=== PATIENT | female | born 1990 | race Hispanic/Latino ===

== ENCOUNTER 2018-07-02 10:00 | Observation (INO) | payer MEDICAID, SELFPAY ==
[2018-07-02] MEDS ORDERED: Ondansetron HCl/PF 4 MG/2 ML Vial IVP PRN (11:12)
[2018-07-02] MEDS ORDERED: Sodium Chloride 0.9% 10 ML ONE ×2 (11:14→21:23)
[2018-07-02] MEDS ORDERED: Lactated Ringer's 1,000 ML IV SCH (11:30)
--- NOTE | 2018-07-02 11:33 | PDOC.FPROB ---
Addendum entered and electronically signed by Dalia Alvarado MD 07/02/18 12: 35: 27 yo @ 7.1 by LMP (BRAYDON 02/17/2019)who presents with intractable nausea/ vomiting x 2-3 weeks, also reports hematemsis. Pt has history of molar . 1) Mild dehydration - will replete volume loss with IV fluid 2) Hyperemesis gravidarum - will treat with Zofran prn and diclegis. Will check electrolytes and replace as needed; with reports of hematemesis, will consult GI , check H/H and gastric occult blood test. 3) - will obtain IOB labs as well as TVUS to verify intrauterine and rule out molar as a cause of hyperemesis. - Original Note: FMR OB H&P: HPI - History of Present Illness Chief Complaint: Nausea and vomiting History of Present Illness: 27 yo @ 7.1 wk by LMP presents for untractable nausea and vomiting for the past 2-3 weeks. She reports she has an appetite, but has not been able to keep foods or liquids down. She has been vomiting, sometimes bright red blood up to 1 cup of blood, denies clots. She has lost 6 lbs within the last two weeks. She had been taking suppositories (presumably phenergan) for her nausea but they stopped working. She denies vaginal bleeding or discharge or loss of fluid. Endorses vision changes, light headedness, diffuse weakness, throat pain , and midepigastric abdominal pain. She has a PMH of hyperemesis gravidarum with a previous . She also has a history of a molar . 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: No STIs, normal pap smears - Surgical History Sx History: none - Social History Social History: no smoking, alcohol, or drug use - Family History Family History: Family history of uterine or cervical cancer in the women of her family, states she's not sure which but they had hysterectomies Also stated women had "uterine cysts," possibly fibroids in her family history FMR OB H&P: Medications - Current Home Medications: Medication Instructions Recorded Confirmed Type Calcium Carbonate [Tums Extra 2 tablet PO Q2HR PRN 08/30/15 08/30/15 History Strength] Promethazine [Phenergan] 25 mg PO Q6HR PRN 08/30/15 08/30/15 History Acetaminophen With Codeine 1 - 2 tablet PO Q6HR PRN #0 tablet 08/31/15 Rx [Tylenol with Codeine #3] Docusate Calcium [Surfak] 100 mg PO BID #0 cap 08/31/15 Rx Ferrous Sulfate [Feosol] 325 mg PO BID-WM #0 tab 08/31/15 Rx Ibuprofen [Motrin] 800 mg PO Q6H PRN #0 tab 08/31/15 Rx Allergies/Adverse Reactions: Allergies Allergy/AdvReac Type Severity Reaction Status Date / Time No Known Drug Allergies Allergy Verified 08/30/15 08:29 FMR OB H&P: ROS - Review of Systems General: reports: weight/appetite/sleep changes, fatigue. denies: fever/chills Eyes: reports: vision changes ENT: reports: sore throat, pain with swallowing, trouble with swallowing Cardiovascular: reports: chest pain (chest pain with vomiting), palpitation Respiratory: reports: shortness of breath. denies: cough Gastrointestinal: reports: abdominal pain (midepigastric), nausea, vomiting. denies: diarrhea, constipation, bright red blood, dark black tarry stools Genitourinary (Female): denies: incontinence, dysuria, hematuria, vaginal discharge, vaginal pain, vaginal bleeding Musculoskeletal: denies: pain Neurologic: reports: weakness. denies: numbness Integumentary: denies: itching, rash FMR OB H&P: Vital Signs - Maternal Vital signs: Vital Signs - First Documented Temp Pulse Resp BP 98.2 F 74 18 114/82 07/02/18 10:32 07/02/18 10:32 07/02/18 10:32 07/02/18 10:32 FMR OB H&P: Physical Exam - Physical Exam General: NAD, awake, alert and oriented HEENT: normocephalic and atraumatic, PERRLA, EOMI, other (Mucous membranes dry) Neck: supple, no LAD Heart: RRR, normal S1/S2, no murmurs/rubs/gallops, pulses present, no edema General: CTAB, no respiratory distress, good air movement, no wheezing, no retractions Abdomen: soft, bowel sound present, other (midepigastric TTP, no rebound tenderness) Musculoskeletal: pulses present Skin: no rash, capillary refill <2 seconds Psychiatric: intact recent and remote memory, good judgement and insight, normal mood and affect FMR OB H&P: A/P - Problem List (1) Normal in multigravida in first trimester Current Visit: Yes Status: Acute Code(s): Z34.81 - ENCOUNTER FOR SUPRVSN OF NORMAL , FIRST TRIMESTER (2) Hyperemesis affecting , antepartum Current Visit: No Status: Acute Code(s): O21.0 - MILD HYPEREMESIS GRAVIDARUM Discussion: Date/Time: 07/02/18 1128 27 @ 7.1 wk by LMP presenting for hyperemesis gravidarum. Hyperemesis Gravidarum with dehydration -VSS, pt appears mildly dehydrated on exam -LR bolus of 1000 ml, reassess then consider adding MIVF -IV zofran for nausea -Strict I/Os -Diclegus this PM -CBC, CMP, mag phos, BHCG, lipase to check for other causes (including molar , pancreatitis, choledocholithiasis), check her electrolyte status, and concern for anemia with her bloody vomitus Multigravid , first trimester -Initial labs -1st trimester vaginal Dating US Sickle cell trait - per pt report, aware This H&P was discussed with Dr. Vidal who agree with the above documentation and plan. Attending Addendum - Attending Addendum Date/Time: 07/02/18 6218 I personally evaluated the patient and discussed the management with team. I agree with and repeated the History, Examination, Assessment and Plan documented above with any addition or exceptions noted below. NAD, resting comfortably, nonfocal exam. Hyperemesis gravidarum with dehydration -fluids, zofran, dox/b12, closely monitor Hematemesis -as she is adamant that she had ~12 oz of blood will discuss with GI. Anticipate simply MW tears with no evidence of perforation. Will add PPI elevated HCG -1T sono
[2018-07-02 11:47] LABS: #Eosinphils 0.1 thou/uL (0.0-0.7); #Lymphocytes 1.9 thou/uL (1.20-3.40); #Monocytes 0.5 thou/uL (0.11-0.59); #Neutrophils 7.8 thou/uL (1.40-6.50); %Basophils 0.4 % (0.0-1.0); %Eosinophils 0.5 % (0.0-10.0); %Lymphocytes 18.4 % (21.0-51.0); %Monocytes 4.8 % (0.0-10.0); %Neutrophils 75.8 % (42.0-75.0); Hemoglobin 13.9 g/dL (12.0-16.0); Mean Corpuscular HGB CONC 34.1 g/dL (32.0-36.0); Mean Corpuscular Hemoglobin 27.8 pg (27.0-31.0); Mean Corpuscular Volume 81.6 fL (78.0-98.0); Mean Platelet Volume 8.8 fL (7.4-10.4); Platelet Count 219 thou/uL (130-400); RBC Distribution Width 13.2 % (11.5-14.5); Red Blood Cell (RBC) Count 5.01 mill/uL (4.20-5.40); White Blood Cell (WBC) Count 10.3 thou/uL (4.8-10.8)
[2018-07-02 11:55] LABS: ALT (SGPT) 23 U/L (8-55); AST (SGOT) 13 U/L (5-34); Albumin 4.6 g/dL (3.5-5.0); Alkaline Phosphatase 68 U/L (40-150); Anion Gap 13 mmol/L (10-20); BUN (Urea Nitrogen) 7 mg/dL (7.0-18.7); Bilirubin, Total 0.6 mg/dL (0.2-1.2); Calc. Creatinine Clearance 108 mL/min (70-130); Calcium 9.7 mg/dL (7.8-10.44); Carbon Dioxide 24 mmol/L (22-29); Chloride 103 mmol/L (98-107); Estimated GFR-MDRD Greater than 90; Globulin 3.1 g/dL (2.4-3.5); Glucose 89 mg/dL (70-105); Potassium 3.6 mmol/L (3.5-5.1); Protein, Total 7.7 g/dL (6.0-8.3); Sodium 136 mmol/L (136-145)
[2018-07-02 12:13] LABS: HBSAg Index 0.25 S/CO (0-0.99); HIV (1/2) Antibody/Antigen Non-Reactive (NonReactive); HIV 1/2 INDEX 0.11 S/CO (<1.00); Hep B Surf Ag Non-Reactive S/CO (NonReactive); Syphilis Antibody Nonreactive (Nonreactive); Syphilis Antibody Index 0.03 S/CO (<1.00 Non-Reactive); Thyroid Stimulating Hormone 1.3337 uIU/mL (0.35-4.94)
[2018-07-02 12:44] LABS: Magnesium 2.2 mg/dL (1.6-2.6); Phosphorus 2.8 mg/dL (2.3-4.7)
--- NOTE | 2018-07-02 14:11 | CON ---
DATE OF CONSULTATION: 07/02/2018 HISTORY OF PRESENT ILLNESS: The patient is a 27-year-old female, who was in her normal stat e of health, until 7 weeks ago, when she became and started to have problems with persistent nausea and vomiting. She reports last , she had a similar vomiting that lasted for many we eks. She also had some blood in her emesis. After , she did not have any problems and was doing fine. She really has no abdominal pain prior to her onset of vomiting. She reports a 6-pound weight loss. PAST MEDICAL HISTORY: 1. Molar . 2. Sickle cell trait. MEDICATIONS: No prescription medications. ALLERGIES: No known allergies. SOCIAL HISTORY: She does not smoke or drink. FAMILY HISTORY: Negative for GI or liver disease. REVIEW OF SYSTEMS: Ten-systems were reviewed and were negative except for above. PHYSICAL EXAMINATION: VITAL SIGNS: Shows a temperature 98.2, pulse 74, respiratory rate 18, blood pressure 114/82. HEENT: Unremarkable. NECK: Supple. CHEST: Clear. CARDIOVASCULAR: Regular rate and rhythm. ABDOMEN: Soft. Diffusely tender without rebound or guarding. Bowel sounds are present and normoact aston. RECTAL: Deferred. EXTREMITIES: Normal. NEUROLOGIC: Nonfocal. LABORATORY DATA: Shows a white blood cell count of 10.3, hemoglobin 13.9, hematocrit of 40.9, MCV of 81.6. Chemistries were all normal. Total beta hCG is 15,000. TSH is normal. Syphilis, hepatitis B surface antigen and HIV are all nonreactive. Pelvic ultrasound is pending. ASSESSMENT: 1. Hyperemesis gravidarum. 2. Hematemesis - probably secondary to a small Margo-Singletary tear or possibly secondary to some eros aston esophagitis. RECOMMENDATIONS: 1. Strict control of nausea and vomiting. 2. Add a proton pump inhibitor. 3. Stable for discharge from GI standpoint. 4. No endoscopy at this time.
--- NOTE | 2018-07-02 15:17 | ULT ---
OBSTETRIC SONOGRAM: History: Early . FINDINGS: Multiple transvaginal sonographic views show a single intrauterine gestational sac in the endometrial cavity with a yolk sac and pole. Heart motion at 133 beats/minute. Measurements correlate with 7 weeks 3 days gestational age giving an estimated date of delivery based on today's sonogram of 5-1 8-19. A heterogeneous subchorionic fluid collection measures up to 2.7 cm. Minimal free fluid in the pelvis. Right ovary is 3.4 cm and left is 3.3 cm. Each has a normal appearance with good color and spectral d oppler flow. IMPRESSION: Single viable intrauterine gestation with estimated gestational age based on today's sonogram of 7 we eks 3 days. Moderate sized subchorionic hemorrhage. POS: [facility]
[2018-07-02 17:14] LABS: Bilirubin Negative (Negative); Blood, Urine Negative (Negative); Clarity CLOUDY (Clear); Glucose, Urine (Dipstick) Negative (Negative); Leukocyte Moderate (Negative); Nitrite Negative (Negative); Protein, Urine (Dipstick) Trace mg/dL (Neg-Trace); Specific Gravity, Urine 1.022 (1.002-1.036)
[2018-07-02 17:16] LABS: Bacteria/HPF Rare-Few HPF (None Seen); Hyaline Casts/LPF 4-6 HYALINE CAST LPF (0-3 Hyaline); Pathc Cast-AUWi Flag 1.59 (0-2.49); Squamous Epithelial 0-3 HPF (0-3); WBC/HPF 21-50 HPF (0-3)
[2018-07-02 17:19] LABS: RBC/HPF 0-3 HPF (0-3)
[2018-07-02] MEDS ORDERED: pyridOXINE 50 MG (B6) TAB PO SCH ×2 (21:00)
[2018-07-02] MEDS ORDERED: Doxylamine 25 MG TAB PO SCH (21:00)
[2018-07-02] MEDS: Famotidine/PF 20 mg/2ml Vial SLOW IVP SCH (21:28)
--- NOTE | 2018-07-03 08:34 | PDOC.FM ---
- Subjective Subjective: 27 yo @ 7.2 by LMP c/w 7.1 week [facility] day 2. No acute events overnight. Pt reports one episode of nausea when brushing teeth, but denies recurrent episodes of vomiting. Denies hematemesis. Deneis dysuria, urinary frequency and urgency. Reports good PO intake and pt eating breakfast when seen this AM. - Objective MAR Reviewed: Yes Vital Signs & Weight: Vital Signs (12 hours) Temp Pulse Resp BP Pulse Ox 07/03/18 07:51 99.3 F 64 20 92/51 L 100 07/03/18 05:44 98.4 F 62 16 98/58 L 07/02/18 23:50 98.4 F 57 L 16 93/63 Weight Weight 56.245 kg I&O: 07/02/18 07/03/18 07/04/18 06:59 06:59 06:59 Intake Total 2224 Balance 2224 Result Diagrams: 07/02/18 11:19 07/02/18 11:19 <Migel Yousif - Last Filed: 07/03/18 08:34> - Objective Vital Signs & Weight: Vital Signs (12 hours) Temp Pulse Resp BP Pulse Ox 07/03/18 07:51 99.3 F 64 20 92/51 L 100 07/03/18 05:44 98.4 F 62 16 98/58 L 07/02/18 23:50 98.4 F 57 L 16 93/63 Weight Weight 56.245 kg I&O: 07/02/18 07/03/18 07/04/18 06:59 06:59 06:59 Intake Total 2224 Balance 2224 Result Diagrams: 07/02/18 11:19 07/02/18 11:19 <Adelso Vidal - Last Filed: 07/03/18 09:56> Phys Exam - Physical Examination Constitutional: NAD HEENT: PERRLA, moist MMs Neck: no nodes Respiratory: no wheezing, no rales, no rhonchi, clear to auscultation bilateral Cardiovascular: RRR, no significant murmur, no rub Gastrointestinal: soft, non-tender, no distention, positive bowel sounds Musculoskeletal: no edema, pulses present Neurological: non-focal, moves all 4 limbs Psychiatric: normal affect Skin: no rash, normal turgor, cap refill <2 seconds <Migel Yousif - Last Filed: 07/03/18 08:34> Dx/Plan (1) Hyperemesis affecting , antepartum Code(s): O21.0 - MILD HYPEREMESIS GRAVIDARUM Status: Acute (2) Dehydration during Code(s): O26.899 - OTH RELATED CONDITIONS, UNSPECIFIED TRIMESTER; E86.0 - DEHYDRATION Status: Resolved (3) Asymptomatic bacteriuria during Code(s): O99.89 - OTH DISEASES AND CONDITIONS COMPL PREG/CHLDBRTH; R82.71 - BACTERIURIA Status: Acute (4) Hematemesis Code(s): K92.0 - HEMATEMESIS Status: Resolved Qualifiers: Nausea presence: with nausea Qualified Code(s): K92.0 - Hematemesis - Plan Plan: 1) Hyperemesis gravidarum: - denies recurrent episodes of vomiting. One episode of nausea since yesterday. - tolerating PO - s/p 1L LR - appears euvolemic w/o evidence of volume depletion - belia ok for dc to home today with continued unisom/pyridoxine and zofran prn 2) Dehydration: - s/p 1L LR - tolerating PO, resolved - ok for dc to home 3) Asymptomatic bacteriuria - mod leuks and rare/few bacteriu with 0-3 squams - rx with 1x dose of 3gm fosfomycin - f/u OP with repeat ua and culture - stable for dc to home 4) Hematemesis, resolved -seen by GI and stable for DC - recommend PPI, omeprazole added - belia 2/2 small MW tear vs esophagitis Dispo: Likely stable for DC to home with close OP f/u pending continued tolerance of PO. Will rx asymptomatic bacteriuria w/ fosfomycin X1. <Migel Yousif - Last Filed: 07/03/18 08:34> (1) Normal in multigravida in first trimester Code(s): Z34.81 - ENCOUNTER FOR SUPRVSN OF NORMAL , FIRST TRIMESTER Status: Acute (2) Hyperemesis affecting , antepartum Code(s): O21.0 - MILD HYPEREMESIS GRAVIDARUM Status: Acute <Adelso Vidal - Last Filed: 07/03/18 09:56> Attending Addendum - Attending Addendum Date/Time: 07/03/1856 I personally evaluated the patient and discussed the management with Dr. Yousif. I agree with and repeated the History, Examination, Assessment and Plan documented above with any addition or exceptions noted below. Pt nontoxic this AM and tolerating some juice but with persistent nausea. Repeat zofran. Will continue hydration, PPI, and observe during the day. Hopeful d/c this PM if able to tolerate diet. <Adelso Vidal - Last Filed: 07/03/18 09:56>
[2018-07-03] MEDS ORDERED: Fosfomycin 3 GM/Packet PO SCH (08:45)
[2018-07-03] MEDS ORDERED: Prenatal Vitamin 1 TAB PO SCH (09:00)
[2018-07-03] MEDS: Famotidine/PF 20 mg/2ml Vial SLOW IVP SCH (09:19)
[2018-07-03] MEDS ORDERED: Ondansetron HCl/PF 4 MG/2 ML Vial IVP SCH (09:45)
[2018-07-03 11:42] VITALS: BP 104/61; TEMP 98.1
[2018-07-03 14:36] VITALS: BMI 23.3
== END 2018-07-03 16:12 | disposition home or self-care (01) ==
LOC: 3SE 10:15
PROVIDERS: ADMIT Emergency Medicine; ATTEND Emergency Medicine
DX: O21.1 Hyperemesis gravidarum with metabolic disturbance (principal); O99.011 Anemia complicating pregnancy, first trimester; D57.3 Sickle-cell trait; O99.89 Other specified diseases and conditions complicating pregnancy, childbirth and the puerperium; R82.71 Bacteriuria; O99.611 Diseases of the digestive system complicating pregnancy, first trimester; K92.0 Hematemesis; Z3A.01 Less than 8 weeks gestation of pregnancy; Z79.899 Other long term (current) drug therapy
CPT/HCPCS: 36415; 76856; 80053; 81003; 81015; 82271; 83690; 83735; 84100; 84443; 84702; 85025; 86762; 86780; 86850; 86900; 86901; 87086; 87340; 87389; 96361; 96374; 96375; 96376; A4216; G0378; J2405; S0028

== ENCOUNTER 2018-07-25 08:50 | Observation (INO) | payer MEDICAID, SELFPAY ==
[2018-07-25] MEDS ORDERED: Ondansetron PF 4 MG/2 ML Vial ONE ×3 (09:15→14:08)
[2018-07-25 09:19] LABS: #Basophils 0.1 thou/uL (0.0-0.2); #Eosinphils 0.1 thou/uL (0.0-0.7); #Lymphocytes 2.7 thou/uL (1.20-3.40); #Monocytes 0.6 thou/uL (0.11-0.59); #Neutrophils 8.9 thou/uL (1.40-6.50); %Basophils 0.7 % (0.0-1.0); %Eosinophils 0.9 % (0.0-10.0); %Lymphocytes 21.5 % (21.0-51.0); %Monocytes 4.6 % (0.0-10.0); %Neutrophils 72.4 % (42.0-75.0); Hemoglobin 14.5 g/dL (12.0-16.0); Mean Corpuscular HGB CONC 34.3 g/dL (32.0-36.0); Mean Corpuscular Hemoglobin 27.9 pg (27.0-31.0); Mean Corpuscular Volume 81.5 fL (78.0-98.0); Mean Platelet Volume 8.2 fL (7.4-10.4); Platelet Count 273 thou/uL (130-400); RBC Distribution Width 12.8 % (11.5-14.5); White Blood Cell (WBC) Count 12.3 thou/uL (4.8-10.8)
[2018-07-25 09:39] LABS: ALT (SGPT) 22 U/L (8-55); AST (SGOT) 18 U/L (5-34); Albumin 4.9 g/dL (3.5-5.0); Alkaline Phosphatase 70 U/L (40-150); Anion Gap 15 mmol/L (10-20); BUN (Urea Nitrogen) 7 mg/dL (7.0-18.7); Bilirubin, Total 1.2 mg/dL (0.2-1.2); Calc. Creatinine Clearance 0 mL/min (70-130); Calcium 10.4 mg/dL (7.8-10.44); Carbon Dioxide 24 mmol/L (22-29); Chloride 104 mmol/L (98-107); Estimated GFR-MDRD Greater than 90; Globulin 3.7 g/dL (2.4-3.5); Glucose 110 mg/dL (70-105); Protein, Total 8.6 g/dL (6.0-8.3); Sodium 140 mmol/L (136-145)
[2018-07-25] MEDS ORDERED: Acetaminophen 500 MG TAB ONE (10:26)
--- NOTE | 2018-07-25 11:27 | ULT ---
PELVIC ULTRASOUND: Date: 07/25/18 COMPARISON: 07/02/18. HISTORY: 27-year-old female with vaginal bleeding, nausea, and vomiting. TECHNIQUE: Multiplanar Tejeda scale sonographic imaging of the pelvis is obtained with transabdominal imaging. Ova citlaly are assessed with color flow and spectral analysis. FINDINGS: The uterus measures 11.7 x 7.5 x 8.5 cm. There is a gestational sac containing a pole and yolk sac. heart rate is 171 beats/minute. There is no free fluid seen in the pelvis. Right ovary measures 3.9 x 2.4 x 2.2 cm. Left ovary measures 3.2 x 2.6 x 1.8 cm. Ovaries demonstrate normal blood flow without evidence for mass lesion. There is a subtle, heterogeneously hypoechoic area adjacent to the gestational sac measuring approxim ately 2.6 x 0.8 cm x 3.3 cm. This may represent a small subchorionic hemorrhage. Nathalie-rump length is 3.4 cm, correlating with 10 weeks/2 days gestation. Gestational sac diameter is 5.1 cm, correlating with 10 weeks/6 days gestation. Average age based on ultrasound is 10 weeks/4 day s. Estimated date of delivery is 02/16/19. IMPRESSION: Findings suspicious for a small subchorionic hemorrhage. Single, live intrauterine gestation as detai led above. POS: [facility]
[2018-07-25] MEDS ORDERED: Lidocaine Viscous Sol 2% 15 ml UD Cup ONE (11:35)
[2018-07-25] MEDS ORDERED: Mag-Al 1200 mg/1200 mg/30 ML UDCUP ONE (11:35)
[2018-07-25] MEDS ORDERED: Magnesium 2 GM/50 ML BAG (IN WATER) ONE (11:35)
[2018-07-25] MEDS ORDERED: Acetaminophen 325 MG/10.15 ML UDCUP ONE (11:35)
[2018-07-25 14:02] LABS: Bilirubin Small (Negative); Blood, Urine Negative (Negative); Clarity CLEAR (Clear); Glucose, Urine (Dipstick) Negative (Negative); Leukocyte Small (Negative); Nitrite Negative (Negative); Protein, Urine (Dipstick) Trace mg/dL (Neg-Trace); Specific Gravity, Urine 1.023 (1.002-1.036)
[2018-07-25 14:12] LABS: Bacteria/HPF Rare-Few HPF (None Seen); Hyaline Casts/LPF 4-6 HYALINE CAST LPF (0-3 Hyaline); Pathc Cast-AUWi Flag 1.16 (0-2.49); Squamous Epithelial 0-3 HPF (0-3)
[2018-07-25 14:23] LABS: RBC/HPF None Seen HPF (0-3)
[2018-07-25] MEDS ORDERED: Promethazine HCl 25 MG SUPP PR PRN (16:27)
[2018-07-25] MEDS: Ondansetron ODT 8 MG TAB SL SCH (21:19)
[2018-07-25] MEDS: Doxylamine 25 MG TAB PO SCH (21:20)
[2018-07-25] MEDS: pyridOXINE 50 MG (B6) TAB PO SCH (21:21)
[2018-07-26 07:56] VITALS: BP 98/59; TEMP 98.6
[2018-07-26] MEDS: Doxylamine 25 MG TAB PO SCH (08:54)
[2018-07-26] MEDS: pyridOXINE 50 MG (B6) TAB PO SCH (08:54)
[2018-07-26] MEDS: Ondansetron ODT 8 MG TAB SL SCH (08:57)
--- NOTE | 2018-07-26 10:25 | SS ---
DATE OF ADMISSION: 07/25/2018 DATE OF DISCHARGE: 07/26/2018 ADMITTING DIAGNOSIS: 1. Intrauterine at 10 weeks. 2. Hyperemesis gravidarum. DISCHARGE DIAGNOSES: 1. Intrauterine at 10 weeks. 2. Hyperemesis gravidarum. PRIMARY MANAGER SUPPORT SERVICES: Clinic. CHIEF COMPLAINT: Uncontrolled vomiting. HISTORY OF PRESENT ILLNESS: The patient is a 27-year-old multiparous female who has been having diff iculty this entire maintaining weight and controlling her vomiting. The patient at home delgado s been on Zofran, Phenergan suppositories and Diclegis in an attempt to control her nausea, vomiting. The patient reported at the time of my evaluation that these medications have been unable to keep h er vomiting under control at home. She reported that she took her Phenergan suppository during the d ay once, her Zofran she did not take anymore because she did not think it helped and her doxylamine a nd vitamin B6 she took at night and then took the PPI the afternoon. The patient was in the emergenc y room hydrated with IV fluids, had potassium replaced and magnesium replaced prior to my evaluation. The patient reports that her previous was complicated by similar symptoms the entire preg arleth. The patient at initial evaluation denies fever. Reports a mild headache, denies chest pain, shortness of breath. Reports the nausea and vomiting. Denies diarrhea, reports constipation. Repor ts vaginal spotting. Denies any hip problems, knee problems or muscle weakness. Denies urinary urge ncy or frequency. PAST MEDICAL HISTORY: Sickle cell trait. PAST SURGICAL HISTORY: Negative. SOCIAL HISTORY: Denies drug, alcohol or tobacco use. OBSTETRIC HISTORY: She has had 1 term vaginal delivery. ALLERGIES: No known drug allergies. CURRENT HOME MEDICATIONS: Zofran, pantoprazole, promethazine vaginal suppositories, vitamin B6 and d oxylamine. OB LABS: Unavailable at time of evaluation. REVIEW OF SYSTEMS: Per HPI. PHYSICAL EXAMINATION: VITAL SIGNS: On initial intake, blood pressure is 116/70, pulse of 116, respiratory rate of 19, temp erature 98.0. Vital signs this morning, temperature 98.6, pulse of 78, respiratory rate of 20, satti ng 99% on room air, blood pressure 98/59. GENERAL: At initial evaluation the patient appeared to be a little lethargic, but in no acute distre ss. She was alert and oriented, cooperative and pleasant to interact with and slow to move. HEART: Regular. LUNGS: Clear to auscultation bilaterally. ABDOMEN: Soft. EXTREMITIES: Nontender, nonedematous. Over the course of her stay, the patient has not had any vomiting with her change in regimen. On arr ival, she was given a total of 8 mg of Zofran IV and took her doxylamine vitamin B6. This was repeat ed on a twice daily regimen. ASSESSMENT AND PLAN: This morning the patient reports she is feeling a lot better, has been able to maintain a regular diet and is comfortable being discharged home. She already has her medications at home. We just explained to her the new regimen of 8 mg in the morning and 8 mg at night of Zofran a nd then the vitamin B6 25 mg twice a day and the doxylamine 12.5 mg twice a day. The patient is shyann g to be discharged to home with an appointment already scheduled with Clinic on 07/29/2018 [facility] we have encouraged that she keep.
== END 2018-07-26 09:10 | disposition home or self-care (01) ==
LOC: ERS 08:50 → 3SE 15:14
PROVIDERS: ADMIT Obstetrics & Gynecology; ATTEND Obstetrics & Gynecology
DX: O21.0 Mild hyperemesis gravidarum (principal); Z3A.10 10 weeks gestation of pregnancy; Z79.899 Other long term (current) drug therapy
CPT/HCPCS: 76856; 80053; 81003; 81015; 84702; 85025; 86900; 86901; 93005; 93976; 96361; 96365; 96375; 96376; G0378; J2405; J3475; J7050

== ENCOUNTER 2018-08-06 10:31 | Observation (INO) | payer MEDICAID, OTHER, SELFPAY ==
[2018-08-06] MEDS ORDERED: Ondansetron PF 4 MG/2 ML Vial ONE (11:01)
[2018-08-06 11:22] LABS: #Eosinphils 0.1 thou/uL (0.0-0.7); #Lymphocytes 1.3 thou/uL (1.20-3.40); #Monocytes 0.4 thou/uL (0.11-0.59); %Basophils 0.4 % (0.0-1.0); %Eosinophils 1.1 % (0.0-10.0); %Lymphocytes 13.3 % (21.0-51.0); %Monocytes 4.3 % (0.0-10.0); Hemoglobin 13.3 g/dL (12.0-16.0); Mean Corpuscular HGB CONC 34.1 g/dL (32.0-36.0); Mean Corpuscular Hemoglobin 28.5 pg (27.0-31.0); Mean Corpuscular Volume 83.6 fL (78.0-98.0); Mean Platelet Volume 7.9 fL (7.4-10.4); Platelet Count 236 thou/uL (130-400); RBC Distribution Width 12.4 % (11.5-14.5); Red Blood Cell (RBC) Count 4.67 mill/uL (4.20-5.40); White Blood Cell (WBC) Count 9.9 thou/uL (4.8-10.8)
[2018-08-06 12:27] LABS: ALT (SGPT) 15 U/L (8-55); AST (SGOT) 15 U/L (5-34); Albumin 4.3 g/dL (3.5-5.0); Alkaline Phosphatase 56 U/L (40-150); Anion Gap 13 mmol/L (10-20); BUN (Urea Nitrogen) 6 mg/dL (7.0-18.7); Bilirubin, Total 0.4 mg/dL (0.2-1.2); Calc. Creatinine Clearance 0 mL/min (70-130); Calcium 9.3 mg/dL (7.8-10.44); Carbon Dioxide 24 mmol/L (22-29); Chloride 103 mmol/L (98-107); Estimated GFR-MDRD Greater than 90; Globulin 3.1 g/dL (2.4-3.5); Glucose 87 mg/dL (70-105); Protein, Total 7.4 g/dL (6.0-8.3); Sodium 136 mmol/L (136-145)
[2018-08-06 12:39] LABS: Bilirubin Negative (Negative); Blood, Urine Negative (Negative); Clarity CLOUDY (Clear); Glucose, Urine (Dipstick) Negative (Negative); Leukocyte Moderate (Negative); Nitrite Negative (Negative); Protein, Urine (Dipstick) 30 mg/dL (Neg-Trace); Specific Gravity, Urine 1.024 (1.002-1.036)
[2018-08-06 12:43] LABS: Bacteria/HPF Rare-Few HPF (None Seen); Hyaline Casts/LPF 4-6 HYALINE CAST LPF (0-3 Hyaline); Pathc Cast-AUWi Flag 1.01 (0-2.49)
[2018-08-06 13:00] LABS: RBC/HPF 0-3 HPF (0-3)
[2018-08-06] MEDS ORDERED: cefTRIAXone\\ROCEPHIN 1 GM VIAL ONE (13:42)
--- NOTE | 2018-08-06 15:08 | PDOC.FPRHP ---
- History of Present Illness Chief Complaint: Intractable nausea and vomiting History of Present Illness: 27yo Upper [employer] @12wk by LMP BRAYDON 02/17/2019 presents for intractable nausea and vomiting for the past 3 days. She reports she has not been able to keep foods or liquids down. Reports vomiting 10 times today. There was bright red blood the last 3 times with up to 1 cup of blood. She has lost 6 lbs over the last few weeks. This is her 3rd hospital admission for similar symptoms. She had been taking phenergan suppositories BID, Vitamin B6, Doxylamine, and protonix for her nausea but they stopped working. Denies abdominal pain or fevers. Reports hx of molar with hyperemesis gravidarum. No vaginal bleeding. - OB Labs Blood type: A RH: positive Antibody Screen: unknown HIV: unknown RPR: unknown HepBsAg: unknown ED Course: Ceftriaxone 1g, 2L NS, Zofran 8mg IV - Allergies/Adverse Reactions Allergies Allergy/AdvReac Type Severity Reaction Status Date / Time No Known Drug Allergies Allergy Verified 08/30/15 08:29 - Home Medications Medication Instructions Recorded Confirmed Type Promethazine HCl [Phenergan] 12.5 mg OK Q6H 07/02/18 08/06/18 History Doxylamine [Unisom] 25 mg PO HS #30 tab 07/03/18 08/06/18 Rx Ondansetron [Zofran ODT] 4 mg PO Q4HR PRN #60 tab 07/03/18 08/06/18 Rx Pantoprazole [Protonix] 40 mg PO DAILY #30 tab 07/03/18 08/06/18 Rx pyridOXINE [Vitamin B 6] 25 mg PO HS #30 tab 07/03/18 08/06/18 Rx - History PMHx: Sickle Cell trait PSHx: None Social: Denies tobacco, alcohol or drug use. - Review of Systems General: reports: weight/appetite/sleep changes. denies: fever/chills ENT: denies: nasal congestion, rhinorrhea Respiratory: denies: cough Cardiovascular: denies: edema Gastrointestinal: reports: nausea, vomiting, GI bleeding. denies: diarrhea, constipation, abdominal pain Genitourinary: denies: incontinence, dysuria Musculoskeletal: denies: pain Neurological: reports: weakness - Vital signs BP: 101/69 HR: 71 RR: 16 Tmax: 98.4 Pox: 99% on RA Wt: 57.1kg - Physical Exam Constitutional: NAD, awake, alert and oriented -Constitutional: Appears fatigued HEENT: normocephalic and atraumatic -HEENT: Dry MM Neck: supple, trachea midline Heart: RRR, no murmurs/rubs/gallops, pulses present, no edema Lungs: CTAB, no respiratory distress, good air movement Abdomen: soft, bowel sounds present -Abdomen: Mild RUQ tenderness. No rebound or guarding Musculoskeletal: normal structure, normal tone Neurological: no focal deficit -Skin: delayed cap refill Psychiatric: normal mood and affect, good judgment and insight, intact recent and remote memory FMR H&P: Results - Labs Result Diagrams: 08/07/18 05:35 08/07/18 05:35 Lab results: WBC 9.9 thou/uL (4.8-10.8) 08/06/18 11:10 Hgb 13.3 g/dL (12.0-16.0) 08/06/18 11:10 Hct 39.0 % (36.0-47.0) 08/06/18 11:10 MCV 83.6 fL (78.0-98.0) 08/06/18 11:10 Plt Count 236 thou/uL (130-400) 08/06/18 11:10 Neutrophils % 81.0 % (42.0-75.0) H 08/06/18 11:10 Sodium 136 mmol/L (136-145) 08/06/18 11:10 Potassium 4.0 mmol/L (3.5-5.1) 08/06/18 11:10 Chloride 103 mmol/L (98-107) 08/06/18 11:10 Carbon Dioxide 24 mmol/L (22-29) 08/06/18 11:10 BUN 6 mg/dL (7.0-18.7) L 08/06/18 11:10 Creatinine 0.65 mg/dL (0.6-1.1) 08/06/18 11:10 Glucose 87 mg/dL (70-105) 08/06/18 11:10 Calcium 9.3 mg/dL (7.8-10.44) 08/06/18 11:10 Total Bilirubin 0.4 mg/dL (0.2-1.2) 08/06/18 11:10 AST 15 U/L (5-34) 08/06/18 11:10 ALT 15 U/L (8-55) 08/06/18 11:10 Alkaline Phosphatase 56 U/L (40-150) 08/06/18 11:10 Serum Total Protein 7.4 g/dL (6.0-8.3) 08/06/18 11:10 Albumin 4.3 g/dL (3.5-5.0) 08/06/18 11:10 Urine Ketones Trace mg/dL (Negative) H 08/06/18 12:00 Urine Blood Negative (Negative) 08/06/18 12:00 Urine Nitrite Negative (Negative) 08/06/18 12:00 Ur Leukocyte Esterase Moderate (Negative) H 08/06/18 12:00 Urine RBC 0-3 HPF (0-3) 08/06/18 12:00 Urine WBC 11-20 HPF (0-3) H 08/06/18 12:00 Ur Squamous Epith Cells 11-20 HPF (0-3) H 08/06/18 12:00 Urine Bacteria Rare-Few HPF (None Seen) 08/06/18 12:00 FMR H&P: A/P - Problem List (1) Hyperemesis affecting , antepartum Current Visit: No Status: Acute Code(s): O21.0 - MILD HYPEREMESIS GRAVIDARUM (2) Normal in multigravida in first trimester Current Visit: No Status: Acute Code(s): Z34.81 - ENCOUNTER FOR SUPRVSN OF NORMAL , FIRST TRIMESTER (3) Dehydration during Current Visit: No Status: Acute Code(s): O26.899 - OTH RELATED CONDITIONS, UNSPECIFIED TRIMESTER; E86.0 - DEHYDRATION - Plan Mild dehydration - s/p 2L - Continue to monitor electrolytes, AM CMP - Will check Ph. Mg nml in ED - LR @100ml/hr Wt Loss - 2/2 malnutrition, n/v - Down 4.5kg since last admission 07/25 - Rod Placer consulted Hyperemesis gravidarum - US 07/25, single live IUP, no evidence of molar - Continue home Vit B6, Doxylamine, Phenergan [place] BID, and Protonix - Will start IV Zofran PRN and give IV thiamine - Will check TSH, H pylori, Lipase, Amylase - If no improvement in symptoms with IV medications will consider giving steroids - Will obtain RUQ US for mild tenderness on exam Hematemesis - likely 2/2 Margo-Singletary tear or erosive esophagitis - GI consulted at past admission, addition of PPI at that time - If symptoms do not improve, consider GI consult Asymptomatic Bacteriuria in - Urine Culture pending, no prior urine cx positive for bacteria - Received 1g Ceftriaxone in ED - Will start Macrobid tomorrow IUP - Will assess FHTs Hx of Molar - US with single IUP on 07/25 Sickle Cell Trait FMR H&P: Upper Level - Pertinent history 25HF @ 12w dated by LMP and confirmed with 1T US p/w intractable N/V for 3 days. She is unable to tolerate PO and has had between 5-10 episodes of vomiting today. Emesis in non-bilious but has been bloody the last several times. She denies any abdominal pain, vaginal bleeding, decreased movement , fever, hematochezia, and melena. This will be the patients third hospitalization for hyperemesis gravidarum this . Prior admissions have revealed a possible small subchorionic hemorrhage on US and were negative for molar . She has responded to IV medication and IVF resuscitation previously. She has been maximized on her outpatient anti-nausea regimen with zofran, pheneran OK, B6, Doxylamine, Protonix, and promethazine. - Pertinent findings Gen: A&Ox3 CV: RRR, no murmurs Pulm: CTA-B Abd: soft; nonTTP; no guarding Skin: no rashes or lesions; normal skin turgor CBC, CMP normal - Plan Date/Time: 08/06/18 1502 Severe Hyperemesis Gravidarum: admit for observation. Switch all medications to IV and continue on maintenance IVF s/p 2L NS in ED. Vital signs are normal, no s /s of dehydration at this time. Will check amylase, lipase, phosphorous, TSH, and screen for H. pylori. Hematemesis likely 2/2 to M-W tears. Will consult GI is symptom worsens. If N/V unimproved by tomorrow, will try a course of steroids. Asymptomatic Bacteriuria: covered with rocephin in the ED. Will send for culture and start macrobid. Repeat for sterilization in OP setting sIUP: confirmed via US on 07/25. heart tones normal on examination I, Loco Antonio, have evaluated this patient and agree with findings/plan as outlined by internal security manager resident. Pertinent changes/additions are listed here. Attending Addendum - Attending Addendum Date/Time: 08/07/18 2101 I personally evaluated the patient and discussed the management with Dr. Arriaga I agree with the History, Examination, Assessment and Plan documented above with any addition or exceptions noted below. Seem and examined by me. FHT 140s with doptone, no VB. She has equivocal Pires's sign. Agree with plan, change meds to PO, maintain hydration. Discussed FEN with residents. Consider RUQ U/S.
[2018-08-06] MEDS ORDERED: Ondansetron ODT 4 MG TAB PO PRN (15:22)
[2018-08-06] MEDS ORDERED: Ondansetron PF 4 MG/2 ML Vial IVP PRN (15:22)
[2018-08-06] MEDS ORDERED: Sodium Chloride 0.9% 1,000 ML IV SCH (15:22)
[2018-08-06 16:16] VITALS: BMI 22.2
[2018-08-06] MEDS: Lactated Ringer's 1,000 ML IV SCH ×2 (16:35→22:33)
[2018-08-06] MEDS ORDERED: pyridOXINE 50 MG (B6) TAB PO SCH (17:00)
[2018-08-06 17:02] LABS: Phosphorus 2.9 mg/dL (2.3-4.7)
[2018-08-06] MEDS: pyridOXINE 50 MG (B6) TAB PO SCH ×2 (18:09→22:27)
[2018-08-06] MEDS ORDERED: Sodium Chloride 0.9% 10 ML ONE (20:08)
[2018-08-06] MEDS ORDERED: Nitrofurantoin Monohyd/M-Cryst 100 MG CAP PO SCH (21:45)
[2018-08-06] MEDS ORDERED: Acetaminophen 325 MG TAB PO PRN (21:59)
[2018-08-06] MEDS: Promethazine HCl 25 MG/ML VIAL IM/IV SCH (22:23)
[2018-08-06] MEDS: Doxylamine 25 MG TAB PO SCH (22:30)
[2018-08-07 05:51] LABS: #Eosinphils 0.2 thou/uL (0.0-0.7); #Lymphocytes 2.3 thou/uL (1.20-3.40); #Monocytes 0.4 thou/uL (0.11-0.59); #Neutrophils 4.6 thou/uL (1.40-6.50); %Basophils 0.1 % (0.0-1.0); %Eosinophils 2.5 % (0.0-10.0); %Monocytes 5.8 % (0.0-10.0); %Neutrophils 60.6 % (42.0-75.0); Hemoglobin 10.6 g/dL (12.0-16.0); Mean Corpuscular HGB CONC 33.8 g/dL (32.0-36.0); Mean Corpuscular Hemoglobin 28.8 pg (27.0-31.0); Mean Corpuscular Volume 85.2 fL (78.0-98.0); Mean Platelet Volume 7.8 fL (7.4-10.4); Platelet Count 200 thou/uL (130-400); RBC Distribution Width 12.5 % (11.5-14.5); Red Blood Cell (RBC) Count 3.66 mill/uL (4.20-5.40); White Blood Cell (WBC) Count 7.5 thou/uL (4.8-10.8)
[2018-08-07 06:09] LABS: Anion Gap 9 mmol/L (10-20); BUN (Urea Nitrogen) 8 mg/dL (7.0-18.7); Calc. Creatinine Clearance 133 mL/min (70-130); Calcium 8.8 mg/dL (7.8-10.44); Carbon Dioxide 22 mmol/L (22-29); Chloride 112 mmol/L (98-107); Estimated GFR-MDRD Greater than 90; Glucose 78 mg/dL (70-105); Potassium 3.6 mmol/L (3.5-5.1); Sodium 139 mmol/L (136-145)
--- NOTE | 2018-08-07 06:46 | PDOC.FM ---
- Subjective Subjective: Reports feeling a little bit better than yesterday. Denies vomiting but has been nausea and feels the need to spit frequent due to her nausea. Sh has been able to keep down grape juice, lemonade and water. Denies abdominal pain, diarrhea. Has been avoiding spicy food and attempting to eat bland foods. - Objective MAR Reviewed: Yes Vital Signs & Weight: Vital Signs (12 hours) Temp Pulse Resp BP Pulse Ox 08/07/18 06:25 98.6 F 82 16 97 08/07/18 00:45 99.0 F 78 18 102/68 98 08/06/18 20:17 98.5 F 85 18 102/68 98 Weight Weight 57 kg I&O: 08/05/18 08/06/18 08/07/18 06:59 06:59 06:59 Intake Total 1442 Balance 1442 Result Diagrams: 08/07/18 05:35 08/07/18 05:35 <Fouzia Arriaga - Last Filed: 08/07/18 09:16> - Objective Vital Signs & Weight: Vital Signs (12 hours) Temp Pulse Resp BP Pulse Ox 08/07/18 12:26 99.1 F 78 18 102/56 L 08/07/18 08:37 99.0 F 70 20 107/55 L 99 08/07/18 06:25 98.6 F 82 16 97 Weight Admit Weight 56.971 kg Weight 59.466 kg I&O: 08/06/18 08/07/18 08/08/18 06:59 06:59 06:59 Intake Total 1442 Balance 1442 Result Diagrams: 08/07/18 05:35 08/07/18 05:35 <Evelio Santillan - Last Filed: 08/07/18 15:29> Phys Exam - Physical Examination Constitutional: NAD Neck: supple Respiratory: no wheezing, clear to auscultation bilateral Cardiovascular: RRR, no significant murmur Gastrointestinal: soft, positive bowel sounds Musculoskeletal: no edema Psychiatric: normal affect, A&O x 3 <Fouzia Arriaga - Last Filed: 08/07/18 09:16> Dx/Plan (1) Hyperemesis affecting , antepartum Code(s): O21.0 - MILD HYPEREMESIS GRAVIDARUM Status: Acute (2) Normal in multigravida in first trimester Code(s): Z34.81 - ENCOUNTER FOR SUPRVSN OF NORMAL , FIRST TRIMESTER Status: Acute (3) Dehydration during Code(s): O26.899 - OTH RELATED CONDITIONS, UNSPECIFIED TRIMESTER; E86.0 - DEHYDRATION Status: Acute - Plan Plan: Mild dehydration - s/p 2L - Monitor and replace electrolytes as needed - LR @100ml/hr Wt Loss - 2/2 malnutrition, n/v - Down 4.5kg since last admission 07/25 - Database Admin consulted Hyperemesis gravidarum - US 07/25, single live IUP, no evidence of molar - s/p thiamine - RUQ US: Contracted gallbladder limiting assessment. Possible gallbladder polyp vs adherent stone. Recommended 6mo f/u exam - Continue home Vit B6, Doxylamine, Phenergan [place] BID, Protonix - TSH, Lipase, Amylase nml. H pylori pending - Will schedule IV Zofran 4mg q4h - If no improvement in symptoms with IV medications will consider giving steroids Hematemesis - likely 2/2 Margo-Singletary tear or erosive esophagitis - GI consulted at past admission, addition of PPI at that time - If symptoms do not improve, consider GI consult Asymptomatic Bacteriuria in - Urine Culture pending, no prior urine cx positive for bacteria - Received 1g Ceftriaxone in ED - Starting Macrobid IUP - FHTs 150's with bedside doppler Hx of Molar - US with single IUP on 07/25 Sickle Cell Trait <Fouzia Arriaga - Last Filed: 08/07/18 09:16> (1) Hyperemesis affecting , antepartum Code(s): O21.0 - MILD HYPEREMESIS GRAVIDARUM Status: Acute (2) Normal in multigravida in first trimester Code(s): Z34.81 - ENCOUNTER FOR SUPRVSN OF NORMAL , FIRST TRIMESTER Status: Acute (3) Dehydration during Code(s): O26.899 - OTH RELATED CONDITIONS, UNSPECIFIED TRIMESTER; E86.0 - DEHYDRATION Status: Acute <Evelio Santillan - Last Filed: 08/07/18 15:29> Attending Addendum - Attending Addendum Date/Time: 08/07/18 9465 I personally evaluated the patient and discussed the management with Dr. Arriaga I agree with the History, Examination, Assessment and Plan documented above with any addition or exceptions noted below. Slightly improved overnight. Still has not demonstrated ability to tolerate PO and maintain hydration. Pt states similar Sx with previous - lasted the entire duration. RUQ U/S abnormality likely incidental finding and not clinically relevant. Given lack of efficacy of all interventions thusfar, would not oppose trial of steroids Discussed at length with patient. <Evelio Santillan - Last Filed: 08/07/18 15:29>
--- NOTE | 2018-08-07 08:26 | ULT ---
GALLBLADDER ULTRASOUND: Indication: Right upper quadrant pain. Comparison: 01-14-15 FINDINGS: There is a contracted gallbladder which has mild wall prominence. Focus of increased echogenicity abu tting the gallbladder wall measuring approximately 4 mm may be related to a small polyp versus a smal l adherent stone. No abnormal biliary ductal dilatation or ascites. Pires's sign reported as negativ e by wardrobe technician. No focal hepatic lesion. IMPRESSION: Contracted gallbladder limiting assessment. Possible gallbladder polyp formation versus small adheren t stone. Six month follow up exam would prove useful for continued assessment. Code T POS: SHERRIE
[2018-08-07] MEDS: Promethazine HCl 25 MG/ML VIAL IM/IV SCH ×2 (09:07→21:25)
[2018-08-07] MEDS: Nitrofurantoin Monohyd/M-Cryst 100 MG CAP PO SCH ×2 (09:08→21:28)
[2018-08-07] MEDS: Pantoprazole 40 MG VIAL IVP SCH (09:08)
[2018-08-07] MEDS: Doxylamine 25 MG TAB PO SCH ×2 (09:08→21:29)
[2018-08-07] MEDS: pyridOXINE 50 MG (B6) TAB PO SCH ×4 (09:09→21:29)
[2018-08-07] MEDS: Ondansetron PF 4 MG/2 ML Vial IVP SCH ×4 (11:10→21:23)
[2018-08-07] MEDS: Lactated Ringer's 1,000 ML IV SCH ×2 (11:10→21:28)
[2018-08-07] MEDS ORDERED: Sodium Chloride 0.9% 10 ML ONE (21:12)
[2018-08-08] MEDS: Ondansetron PF 4 MG/2 ML Vial IVP SCH ×3 (02:26→10:05)
[2018-08-08] MEDS: Lactated Ringer's 1,000 ML IV SCH (06:00)
--- NOTE | 2018-08-08 06:59 | PDOC.FM ---
- Subjective Subjective: Was able to tolerate eggs for breakfast yesterday. Ate lunch and dinner as well , pt reports vomiting once after eating chicken for dinner. Advised pt to eat foods like soup and crackers. She is tolerating fluids. - Objective MAR Reviewed: Yes Vital Signs & Weight: Vital Signs (12 hours) Temp Pulse Resp BP Pulse Ox 08/07/18 19:35 98.5 F 79 16 108/60 98 Weight Admit Weight 56.971 kg Weight 59.466 kg I&O: 08/06/18 08/07/18 08/08/18 06:59 06:59 06:59 Intake Total 1442 1682 Balance 1442 1682 Result Diagrams: 08/07/18 05:35 08/07/18 05:35 <Fouzia Arriaga - Last Filed: 08/08/18 09:59> - Objective Vital Signs & Weight: Vital Signs (12 hours) Temp Pulse Resp BP Pulse Ox 08/08/18 11:17 98.4 F 81 24 H 98/57 L 08/08/18 07:59 98.4 F 81 20 110/68 99 Weight Admit Weight 56.971 kg Weight 59.466 kg I&O: 08/07/18 08/08/18 08/09/18 06:59 06:59 06:59 Intake Total 1442 1682 Balance 1442 1682 Result Diagrams: 08/07/18 05:35 08/07/18 05:35 <Evelio Santillan - Last Filed: 08/08/18 15:32> Phys Exam - Physical Examination Constitutional: NAD Neck: supple Respiratory: no wheezing, clear to auscultation bilateral Cardiovascular: RRR, no significant murmur Gastrointestinal: soft, non-tender, positive bowel sounds Musculoskeletal: no edema, pulses present Psychiatric: normal affect, A&O x 3 <Fouzia Arriaga - Last Filed: 08/08/18 09:59> Dx/Plan (1) Hyperemesis affecting , antepartum Code(s): O21.0 - MILD HYPEREMESIS GRAVIDARUM Status: Acute (2) Normal in multigravida in first trimester Code(s): Z34.81 - ENCOUNTER FOR SUPRVSN OF NORMAL , FIRST TRIMESTER Status: Acute (3) Dehydration during Code(s): O26.899 - OTH RELATED CONDITIONS, UNSPECIFIED TRIMESTER; E86.0 - DEHYDRATION Status: Acute - Plan Plan: Mild dehydration - Pt tolerating fluids, will d/c IVF Wt Loss - 2/2 malnutrition, n/v - Down 4.5kg since last admission 07/25 - Senior Architect consulted Hyperemesis gravidarum - US 07/25, single live IUP, no evidence of molar - s/p thiamine - RUQ US: Contracted gallbladder limiting assessment. Possible gallbladder polyp vs adherent stone. Recommended 6mo f/u exam - Continue home Vit B6, Doxylamine, Phenergan [place] BID, Protonix, will switch to PO Zofran - TSH, Lipase, Amylase nml. H pylori pending Hematemesis - likely 2/2 Margo-Singletary tear or erosive esophagitis - GI consulted at past admission, addition of PPI at that time Asymptomatic Bacteriuria in - Urine Culture pending, no prior urine cx positive for bacteria - Received 1g Ceftriaxone in ED - Continue Macrobid IUP - FHTs 150's with bedside doppler Hx of Molar - US with single IUP on 07/25 Sickle Cell Trait <Fouzia Arriaga - Last Filed: 08/08/18 09:59> (1) Hyperemesis affecting , antepartum Code(s): O21.0 - MILD HYPEREMESIS GRAVIDARUM Status: Acute (2) Normal in multigravida in first trimester Code(s): Z34.81 - ENCOUNTER FOR SUPRVSN OF NORMAL , FIRST TRIMESTER Status: Acute (3) Dehydration during Code(s): O26.899 - [facility] RELATED CONDITIONS, UNSPECIFIED TRIMESTER; E86.0 - DEHYDRATION Status: Acute <Evelio Santillan - Last Filed: 08/08/18 15:32> Attending Addendum - Attending Addendum Date/Time: 08/08/18 1530 I personally evaluated the patient and discussed the management with Dr. Arriaga Slow but steady progress. Given extensive dietary counselling / suggestions <Evelio Santillan - Last Filed: 08/08/18 15:32>
[2018-08-08 07:59] VITALS: TEMP 98.4
[2018-08-08] MEDS: Nitrofurantoin Monohyd/M-Cryst 100 MG CAP PO SCH (08:30)
[2018-08-08] MEDS: Doxylamine 25 MG TAB PO SCH (08:31)
[2018-08-08] MEDS: Promethazine HCl 25 MG/ML VIAL IM/IV SCH (08:31)
[2018-08-08] MEDS: Pantoprazole 40 MG VIAL IVP SCH (08:33)
[2018-08-08] MEDS: pyridOXINE 50 MG (B6) TAB PO SCH ×2 (08:36→14:55)
[2018-08-08] MEDS ORDERED: Ondansetron ODT 8 MG TAB SL PRN (10:02)
[2018-08-08] MEDS ORDERED: Ondansetron ODT 4 MG TAB PO PRN (10:02)
[2018-08-08 11:18] VITALS: BP 98/57
[2018-08-08] MEDS ORDERED: Promethazine HCl 12.5 MG SUPP PR SCH ×2 (13:00→21:00)
--- NOTE | 2018-08-09 13:08 | DIS-2 ---
DATE OF ADMISSION: 08/06/2018 DATE OF DISCHARGE: 08/08/2018 RESIDENT: Fouzia Arriaga, PGY1. ADMITTING ATTENDING: Evelio Santillan M.D. DISCHARGE ATTENDING: Evelio Santillan M.D. CONSULTS: None. PROCEDURES: None. PRIMARY DIAGNOSES: 1. Mild dehydration. 2. Hyperemesis gravidarum. SECONDARY DIAGNOSES: 1. Weight loss secondary to malnutrition, nausea and vomiting. 2. Hematemesis. 3. Asymptomatic bacteriuria in . 4. Intrauterine . 5. History of molar . 5. Sickle cell trait. DISCHARGE MEDICATIONS: 1. Unisom 25 mg p.o. b.i.d. 2. Nitrofurantoin 100 mg b.i.d. for a total of 5 days. 3. Zofran 4 mg p.o. q.4 hours p.r.n. 4. Protonix 40 mg daily. 5. Phenergan 12.5 mg per rectum b.i.d. 6. Vitamin B6 25 mg at bedtime. DISCONTINUED MEDICATIONS: None. HISTORY OF PRESENT ILLNESS AND HOSPITAL COURSE: Ms. Suarez is a 27-year-old G5 , P3-0-1-3, presented at 12 weeks by last menstrual period with an BRAYDON of 2018, presented for intractable nausea and vomiting for the past 3 days. She did have three episodes of hematemesis. Reported weight loss of 6 pounds. This is her third hospital admission for intractable nausea and vomiting with . She had been taking Phenergan suppositories b.i.d., vitamin B6, doxylamine and Protonix after the last admission, but these medications have become ineffective. Right upper quadrant ultrasound was performed due to some mild right upper quadrant tenderness on exam. This showed a possible gallbladder polyp versus adherent stone. They recommended follow up in 6 months. Ultrasound was performed at last admission showing single intrauterine on 07/25/2018. She does have a history of a molar . Patient was treated for hyperemesis gravidarum with IV fluids and Zofran in addition to her home regimen. Eventually able to tolerate fluid and food intake. It was recommended she eats cold foods, as the scent of food has been a trigger for her nausea and vomiting. Also, recommended avoiding spicy foods and meats. Steroids were considered if she showed no improvement with IV medications and fluids. She did not need steroids, but it is likely that intractable nausea and vomiting will return later on in . Pt was given return precautions. She was noted to have asymptomatic bacteriuria, received 1 gram ceftriaxone in the ED. She was transitioned to Macrobid and discharged with a total of 5 days. DISPOSITION: Stable. DISCHARGE INSTRUCTIONS: 1. Location: Home. 2. Diet as tolerated, avoid spicy foods. 3. Activity: No restrictions. 4. Follow up with Clinic within 3-5 days. JUDE
[2018-08-12 11:16] LABS: H. pylori IgA ABS 19.2 units (0.0-8.9); H. pylori IgG ABS 3.43 (0.00-0.79); H. pylori IgM ABS 9.1 units (0.0-8.9)
== END 2018-08-08 16:17 | disposition home or self-care (01) ==
LOC: ERS 10:31 → 3SE 13:55
PROVIDERS: ADMIT Emergency Medicine; ATTEND Emergency Medicine
DX: O21.0 Mild hyperemesis gravidarum (principal); O99.281 Endocrine, nutritional and metabolic diseases complicating pregnancy, first trimester; E86.0 Dehydration; O99.011 Anemia complicating pregnancy, first trimester; D57.3 Sickle-cell trait; O99.611 Diseases of the digestive system complicating pregnancy, first trimester; K92.0 Hematemesis; O99.89 Other specified diseases and conditions complicating pregnancy, childbirth and the puerperium; R82.71 Bacteriuria; O25.11 Malnutrition in pregnancy, first trimester; Z3A.12 12 weeks gestation of pregnancy; Z79.899 Other long term (current) drug therapy
CPT/HCPCS: 36415; 76705; 80048; 80053; 81003; 81015; 82150; 83690; 83735; 84100; 84443; 84702; 85025; 87086; 96361; 96365; 96367; 96375; 96376; C9113; G0378; J0696; J2405; J2550; J3411; J7050; J7120

== ENCOUNTER 2018-08-13 17:18 | Observation (INO) | payer MEDICAID, SELFPAY ==
[2018-08-13] MEDS ORDERED: Metoclopramide HCl 10 MG/2 ML VIAL IVP PRN (18:18)
[2018-08-13] MEDS ORDERED: Ondansetron PF 4 MG/2 ML Vial SLOW IVP PRN (18:18)
--- NOTE | 2018-08-13 19:32 | PDOC.FPROB ---
FMR OB H&P: HPI - History of Present Illness Chief Complaint: Intractable nausea and vomiting History of Present Illness: This is a 27 yo at @ 13.1wk by LMP BRAYDON 02/17/2019 who presents for intractable nausea and vomiting for the past 3 days. She was discharged for a similar episode ~1 week ago. She reports only keeping small amounts of water down. She reports vomiting 13 times since Sunday. She denies any blood in her vomit. She reports taking phenergan suppositories, Vitamin B6, and Doxylamine but these have not been helping the nausea. Pt. reports she has had this same issue with every . Pt. was also recently diagnosed with H. pylori and has been taking triple therapy. FMR OB H&P: Current - Care : 5 Para: 3013 Gestational age: 13.1 wk Due date: 02/17/2019 Dating Criteria: LMP - OB Labs Blood type: A RH: positive Antibody Screen: unknown HIV: unknown RPR: unknown HepBsAg: unknown FMR OB H&P: History - Past Medical History PMH: Pt. has sickle cell trait - Surgical History Sx History: Denies D/A/T FMR OB H&P: Medications - Current Home Medications: Medication Instructions Recorded Confirmed Type Promethazine HCl [Phenergan] 12.5 mg DC Q6H 07/02/18 08/06/18 History Doxylamine [Unisom] 25 mg PO HS #30 tab 07/03/18 08/06/18 Rx Ondansetron [Zofran ODT] 4 mg PO Q4HR PRN #60 tab 07/03/18 08/06/18 Rx Pantoprazole [Protonix] 40 mg PO DAILY #30 tab 07/03/18 08/06/18 Rx pyridOXINE [Vitamin B 6] 25 mg PO HS #30 tab 07/03/18 08/06/18 Rx Doxylamine [Unisom] 25 mg PO BID tab 08/08/18 Rx Nitrofurantoin Monohyd/M-Cryst 100 mg PO BID #7 cap 08/08/18 Rx [Macrobid] Ondansetron [Zofran ODT] 4 mg PO Q4H PRN #20 tab 08/08/18 Rx Pantoprazole [Protonix] 40 mg PO DAILY tab 08/08/18 Rx Promethazine HCl [Phenergan] 12.5 mg DC BID supp 08/08/18 Rx pyridOXINE [Vitamin B 6] 12.5 mg PO QID tab 08/08/18 Rx Allergies/Adverse Reactions: Allergies Allergy/AdvReac Type Severity Reaction Status Date / Time No Known Drug Allergies Allergy Verified 08/30/15 08:29 FMR OB H&P: ROS - Review of Systems General: reports: weight/appetite/sleep changes, fatigue. denies: fever/chills Eyes: denies: eye pain, vision changes ENT: denies: nasal congestion, rhinorrhea, frequent nose bleed Cardiovascular: denies: chest pain, palpitation Respiratory: denies: cough, congestion, shortness of breath Gastrointestinal: reports: indigestion, nausea, vomiting. denies: abdominal pain, bloating, diarrhea, constipation Genitourinary (Female): denies: incontinence, dysuria Musculoskeletal: denies: pain, stiffness Neurologic: denies: numbness, syncope Integumentary: denies: itching, rash Psychological: denies: depression, anxiety FMR OB H&P: Vital Signs - Maternal Vital signs: Vital Signs - First Documented Temp Pulse Resp BP Pulse Ox 98.7 F 86 18 109/68 99 08/13/18 17:30 08/13/18 17:30 08/13/18 17:30 08/13/18 17:30 08/13/18 17:30 FMR OB H&P: Physical Exam - Physical Exam General: NAD, awake, alert and oriented HEENT: normocephalic and atraumatic, MMM, good dention Chest: non-tender to palpation, no lesions Heart: RRR, normal S1/S2, no murmurs/rubs/gallops General: CTAB, no respiratory distress, good air movement Abdomen: soft, gravid, non-tender, bowel sound present Musculoskeletal: pulses present, FROM in all four extremities Skin: good tugor, capillary refill <2 seconds Lymphatic: no unusual bruising or bleeding Psychiatric: intact recent and remote memory, good judgement and insight, normal mood and affect FMR OB H&P: A/P - Problem List (1) Dehydration during Current Visit: No Status: Acute Code(s): O26.899 - OTH RELATED CONDITIONS, UNSPECIFIED TRIMESTER; E86.0 - DEHYDRATION (2) Hyperemesis affecting , antepartum Current Visit: No Status: Acute Code(s): O21.0 - MILD HYPEREMESIS GRAVIDARUM (3) Normal in multigravida in first trimester Current Visit: No Status: Acute Code(s): Z34.81 - ENCOUNTER FOR SUPRVSN OF NORMAL , FIRST TRIMESTER Disposition: This is a 27 yo at 13.1 wk by LMP Mild dehydration -Currently receiving IV LR -Encourage PO intake -CMP to check electrolytes Hyperemesis gravidarum -US 07/25, sIUP, no evidence of molar -Continue home Vit B6, Doxylamine, Phenergan [place] BID -IV reglan H pylori -Continue Amoxicillin, clarithromycin, and protonix First trimester -Aware Code: Full Prophylaxis: none Family: none at bedside Disposition: Home in 1-2 days Discussion: Date/Time: 08/13/181929 This H&P was discussed with Dr. Gamble and Dr. Floyd who agree with the above documentation and plan. Attending Addendum - Attending Addendum Date/Time: 08/13/18 7311 I personally evaluated the patient and discussed the management with Dr. Issa I agree with the History, Examination, Assessment and Plan documented above with any addition or exceptions noted below-This is a 27 yo at @ 13.1wk by LMP BRAYDON 02/17/2019 who presents for intractable nausea and vomiting for the past 3 days. She was discharged for a similar episode ~1 week ago. She reports only keeping small amounts of water down. She reports vomiting 13 times since Sunday. Also recently diagnosed with H. pylori and started on triple therapy. POBhx/PMH/PSH/All reviewed and agree with resident's documentation. Afebrile P72 BP 101/64 RR20 96%RA. Exam repeated by me and agree with resident's findings. Labs: Um=733, K=4.1, Rn=917, CO2=22, BUN/Cr=9/0.56, Gluc=80, AST/ALT= 15/17, U/A negative. A/P: 1) mild dehydration secondary to hyperemesis gravidarum- continue antiemetics. Clear liquids. Monitor weight.
[2018-08-13 19:57] LABS: ALT (SGPT) 17 U/L (8-55); AST (SGOT) 15 U/L (5-34); Albumin 3.7 g/dL (3.5-5.0); Alkaline Phosphatase 53 U/L (40-150); Anion Gap 13 mmol/L (10-20); BUN (Urea Nitrogen) 9 mg/dL (7.0-18.7); Bilirubin, Total 0.4 mg/dL (0.2-1.2); Calc. Creatinine Clearance 142 mL/min (70-130); Calcium 9.4 mg/dL (7.8-10.44); Carbon Dioxide 22 mmol/L (22-29); Chloride 104 mmol/L (98-107); Estimated GFR-MDRD Greater than 90; Glucose 80 mg/dL (70-105); Potassium 4.1 mmol/L (3.5-5.1); Protein, Total 6.7 g/dL (6.0-8.3); Sodium 135 mmol/L (136-145)
[2018-08-13] MEDS: Clarithromycin 250 MG TAB PO SCH (20:09)
[2018-08-13] MEDS: AMOXicillin 250 MG CAP PO SCH (20:09)
[2018-08-13] MEDS: Pantoprazole 40 MG VIAL IVP SCH (20:09)
[2018-08-13] MEDS: Lactated Ringer's 1,000 ML IV SCH (20:10)
[2018-08-13 20:43] LABS: Bilirubin Negative (Negative); Blood, Urine Negative (Negative); Clarity CLEAR (Clear); Glucose, Urine (Dipstick) Negative (Negative); Leukocyte Negative (Negative); Nitrite Negative (Negative); Protein, Urine (Dipstick) Negative (Neg-Trace); Specific Gravity, Urine 1.015 (1.002-1.036); Urobilinogen 0.2 mg/dL (0.2-1.0); pH, Urine 6.5 (5.0-9.0)
[2018-08-13 20:46] LABS: Bacteria/HPF None Seen HPF (None Seen); Hyaline Casts/LPF 0-3 HYALINE CAST LPF (0-3 Hyaline); Pathc Cast-AUWi Flag 0.14 (0-2.49); RBC/HPF 0-3 HPF (0-3); Squamous Epithelial 0-3 HPF (0-3); WBC/HPF 0-3 HPF (0-3)
[2018-08-13 20:47] LABS: Renal Epithelial None Seen HPF (0-3); Transitional Epithelial NONE SEEN HPF (0-3)
--- NOTE | 2018-08-13 22:29 | PDOC.EVN ---
Event Note - Event Note Event Note: Patient is a 27 yo at 12 wks by LMP here for hyperemesis gravidarum. She was hospitalized and dischared on 08/08/18 for the same thing. Reports vomiting 5+ times daily over the past couple days, able to drink water, but no food. She was discharged home on vit B6 and doxylamine, zofran, protonix, phenergan. Was also diagnosed with Hpylori and is on triple therapy which will need to be continued here in the hospital. 101/64 HR: 72 TEMP: 98.5 RR: 20 96% on RA GEN: NAD, AOx3 CARD: RRR, no mgr PULM: CTAB ABD: Nml BSx4, nontender, nondistended #dehydration -LR at 125 per hour #hyperemesis gravidarum -continue with current regimen -previous weight was 59.4kg at 08/08 and is 58.5kg today -eap counselor on small meals, non spicy/greasy meals #Hpylori -clarithromycin, amoxicillin, PPI
[2018-08-14] MEDS: Lactated Ringer's 1,000 ML IV SCH ×3 (02:35→21:39)
[2018-08-14] MEDS ORDERED: Ondansetron PF 4 MG/2 ML Vial SLOW IVP PRN ×2 (08:04→08:09)
[2018-08-14] MEDS ORDERED: Metoclopramide HCl 10 MG/2 ML VIAL IVP PRN (08:09)
--- NOTE | 2018-08-14 08:11 | PDOC.FM ---
- Subjective Subjective: Pt states she vomited once after dinner, but otherwise slept through the night. She was drinking water and grape juice this morning and had ordered pancakes. Discussed increasing the B6 and Unisom to see if that helps with the nausea and vomiting. Discussed trying reglan and zofran prn nausea. She denied feeling dizzy this morning, which is how she felt yesterday in the clinic. - Objective MAR Reviewed: Yes Vital Signs & Weight: Vital Signs (12 hours) Temp Pulse Resp BP 08/14/18 06:20 98.6 F 73 16 93/55 L 08/13/18 23:38 98.5 F 88 16 90/54 L Weight Weight 58.513 kg I&O: 08/13/18 08/14/18 08/15/18 06:59 06:59 06:59 Intake Total 2047 Output Total 840 Balance 1207 Result Diagrams: 08/13/18 19:23 Phys Exam - Physical Examination Constitutional: NAD HEENT: PERRLA, moist MMs Respiratory: no wheezing, no rales, no rhonchi, clear to auscultation bilateral Cardiovascular: RRR, no significant murmur Gastrointestinal: soft, non-tender, no distention Musculoskeletal: no edema, pulses present Neurological: non-focal, normal sensation Lymphatic: no nodes Psychiatric: normal affect, A&O x 3 Skin: no rash Dx/Plan (1) Hyperemesis gravidarum Code(s): O21.0 - MILD HYPEREMESIS GRAVIDARUM Status: Acute (2) H. pylori infection Code(s): A04.8 - OTHER SPECIFIED BACTERIAL INTESTINAL INFECTIONS Status: Acute (3) Second trimester Code(s): Z34.92 - ENCNTR FOR SUPRVSN OF NORMAL PREG, UNSP, SECOND TRIMESTER Status: Acute - Plan Plan: 27 @ ~13wks admitted directly from [facility] for dehydration 2/2 hyperemesis gravidarum and an H. pylori infection. #Hyperemesis gravidarum -Increased Unisom to 25mg TID and B6 to 12.5 mg before breakfast lunch and 25 mg qhs. -She was prescribed 12.5mg B6 TID and 25mg qhs but was only taking it BID. She was prescribed Unisom 25mg TID but was only taking it BID, so I scheduled it for TID here in the hospital and counseled on proper administration of meds upon dc. -Added zofran 8mg (instead of 4mg) IV q8h prn and Reglan 12.5mg IV q8h prn nausea as well -Held phenergan since both phenergan and zofran prolong qtc and phenergan was not helping at home -pt is urinating adequately and does not look dehydrated this morning, will dc fluids, and see how she tolerates oral fluids and a regular diet #H.Pylori infection- -Started pantoprazole 40mg IV BID -Started clarithromicin 500mg BID -Started amoxicillin 1000mg BID #sIUP ~13wks -confirmed by 10wk sono -follow-up at Clinic as instructed by provider dispo: plan to advance diet as tolerated and consider dc tomorrow if vomiting controlled.
[2018-08-14] MEDS ORDERED: pyridOXINE 50 MG (B6) TAB PO SCH ×3 (09:00→21:00)
[2018-08-14] MEDS ORDERED: Doxylamine 25 MG TAB PO SCH ×4 (09:00→21:00)
[2018-08-14] MEDS: Pantoprazole 40 MG VIAL IVP SCH ×2 (09:04→21:38)
[2018-08-14] MEDS: Clarithromycin 250 MG TAB PO SCH ×2 (09:04→21:36)
[2018-08-14] MEDS: AMOXicillin 250 MG CAP PO SCH ×2 (09:05→21:37)
[2018-08-14] MEDS: pyridOXINE 50 MG (B6) TAB PO SCH ×2 (09:29→21:35)
[2018-08-14] MEDS: Doxylamine 25 MG TAB PO SCH ×2 (09:30→21:36)
[2018-08-14 12:33] VITALS: BMI 23.6
[2018-08-14] MEDS ORDERED: Metoclopramide HCl 10 MG/2 ML VIAL IVP SCH (14:00)
--- NOTE | 2018-08-15 08:37 | PDOC.FM ---
- Subjective Subjective: Pt did well overnight. She tolerated all three meals yesterday without vomiting. She required 3 additional IV doses of zofran on top of unisom and b6 regimen. She feels better this morning and wants to go home. - Objective MAR Reviewed: Yes Vital Signs & Weight: Vital Signs (12 hours) Temp Pulse Resp BP 08/15/18 05:05 98.6 F 76 16 93/55 L Weight Admit Weight 58.513 kg Weight 59.08 kg I&O: 08/14/18 08/15/18 08/16/18 06:59 06:59 06:59 Intake Total 2046 4058 Output Total 840 Balance 1207 4058 Result Diagrams: 08/13/18 19:23 <Radha Lebron - Last Filed: 08/15/18 09:24> - Objective Vital Signs & Weight: Vital Signs (12 hours) Temp Pulse Resp BP Pulse Ox 08/15/18 13:08 99.0 F 82 18 95/56 L 08/15/18 08:45 99.8 F H 77 20 95/56 L 99 08/15/18 05:05 98.6 F 76 16 93/55 L Weight Admit Weight 58.513 kg Weight 59.08 kg I&O: 08/14/18 08/15/18 08/16/18 06:59 06:59 06:59 Intake Total 2046 4058 Output Total 840 Balance 1207 4058 Result Diagrams: 08/13/18 19:23 <Evelio Sanchez - Last Filed: 08/15/18 14:07> Phys Exam - Physical Examination Constitutional: NAD Respiratory: no wheezing, no rales, clear to auscultation bilateral Cardiovascular: RRR, no significant murmur Gastrointestinal: soft, non-tender, no distention Musculoskeletal: no edema, pulses present Neurological: non-focal, normal sensation Psychiatric: normal affect, A&O x 3 Skin: no rash <Radha Lebron - Last Filed: 08/15/18 09:24> Dx/Plan (1) Hyperemesis gravidarum Code(s): O21.0 - MILD HYPEREMESIS GRAVIDARUM Status: Acute (2) H. pylori infection Code(s): A04.8 - OTHER SPECIFIED BACTERIAL INTESTINAL INFECTIONS Status: Acute (3) Second trimester Code(s): Z34.92 - ENCNTR FOR SUPRVSN OF NORMAL PREG, UNSP, SECOND TRIMESTER Status: Acute - Plan Plan: 27 @ ~13wks admitted directly from [facility] for dehydration 2/2 hyperemesis gravidarum and an H. pylori infection. #Hyperemesis gravidarum -Continue Unisom to 25mg TID and B6 to 12.5 mg before breakfast lunch and 25 mg qhs. -She was prescribed 12.5mg B6 TID and 25mg qhs but was only taking it BID. She was prescribed Unisom 25mg TID but was only taking it BID, so I scheduled it for TID here in the hospital and counseled on proper administration of meds upon dc. -Added zofran 8mg (instead of 4mg) IV q8h prn and Reglan 12.5mg IV q8h prn nausea as well; however she hasn't used the reglan at all. She has used the zofran 3 times prn. Will dc the patient on 8mg PO liquied form q8h prn nausea. -Recommend dc phenergan at home as both zofran and phenergan prolong qtc and the phenergan was not working. -dc'd fluids today (cut in half yesterday). -if pt tolerates meals today, can be dc'd this afternoon. #H.Pylori infection- -Continue pantoprazole 40mg IV BID -Continue clarithromicin 500mg BID -Continue amoxicillin 1000mg BID #sIUP ~13wks -confirmed by 10wk sono -follow-up at Clinic as instructed by provider dispo: dc this afternoon <Radha Lebron - Last Filed: 08/15/18 09:24> Attending Addendum - Attending Addendum Date/Time: 08/15/18 [id number] I personally evaluated the patient and discussed the management with Dr. Yovanny Cook I agree with the History, Examination, Assessment and Plan documented above with any addition or exceptions noted below. N/V controlled. Vitals normal. Advance diet. Convert to all p.o. If tolerant overnight, d/c on current regime. <Evelio Sanchez - Last Filed: 08/15/18 14:07>
[2018-08-15] MEDS ORDERED: Ondansetron ORAL SOLN. 4 MG/5 ML UDCUP PO PRN (09:23)
[2018-08-15] MEDS: pyridOXINE 50 MG (B6) TAB PO SCH ×2 (09:39→21:12)
[2018-08-15] MEDS: AMOXicillin 250 MG CAP PO SCH ×2 (09:39→21:11)
[2018-08-15] MEDS: Clarithromycin 250 MG TAB PO SCH ×2 (09:39→21:11)
[2018-08-15] MEDS: Doxylamine 25 MG TAB PO SCH ×2 (09:40→21:12)
[2018-08-15] MEDS: Pantoprazole 40 MG VIAL IVP SCH (09:50)
--- NOTE | 2018-08-16 08:11 | PDOC.FM ---
- Subjective Subjective: Denies nausea or vomiting overnight. She is ready to go home. - Objective MAR Reviewed: Yes Vital Signs & Weight: Vital Signs (12 hours) Temp Pulse Resp BP BP 08/16/18 04:45 97.8 F 81 18 107/69 107/69 Weight Admit Weight 58.513 kg Weight 59.08 kg I&O: 08/15/18 08/16/18 08/17/18 06:59 06:59 06:59 Intake Total 4058 1410 Balance 4058 1410 Result Diagrams: 08/13/18 19:23 Phys Exam - Physical Examination Constitutional: NAD resting comfortable in bed HEENT: PERRLA, moist MMs no increased work of breathing Psychiatric: normal affect, A&O x 3 Skin: normal turgor, cap refill <2 seconds Dx/Plan (1) Hyperemesis gravidarum Code(s): O21.0 - MILD HYPEREMESIS GRAVIDARUM Status: Acute (2) H. pylori infection Code(s): A04.8 - OTHER SPECIFIED BACTERIAL INTESTINAL INFECTIONS Status: Acute (3) Second trimester Code(s): Z34.92 - ENCNTR FOR SUPRVSN OF NORMAL PREG, UNSP, SECOND TRIMESTER Status: Acute - Plan Plan: 27 @ ~13wks admitted directly from [facility] for dehydration 2/2 hyperemesis gravidarum and an H. pylori infection. #Hyperemesis gravidarum -Continue Unisom to 25mg TID and B6 12.5 mg before breakfast lunch and 25 mg qhs. -Added zofran 8mg (instead of 4mg) IV q8h prn and Reglan 12.5mg IV q8h prn nausea as well; however she hasn't used the reglan at all. She has used the zofran 3 times prn. Will dc the patient on 8mg PO liquid form q8h prn nausea. -Recommend dc phenergan at home as both zofran and phenergan prolong qtc and the phenergan was not working. -pt can be dc'd this afternoon. #H.Pylori infection- -Continue pantoprazole 40mg IV BID -Continue clarithromicin 500mg BID -Continue amoxicillin 1000mg BID -awaiting antigen results from stool #sIUP ~13wks -confirmed by 10wk sono -follow-up at Clinic as instructed by provider dispo: [place] this afternoon
[2018-08-16 08:27] VITALS: BP 108/75; TEMP 97.7
[2018-08-16] MEDS: AMOXicillin 250 MG CAP PO SCH (09:44)
[2018-08-16] MEDS: Clarithromycin 250 MG TAB PO SCH (09:44)
[2018-08-16] MEDS: pyridOXINE 50 MG (B6) TAB PO SCH (09:45)
[2018-08-16] MEDS: Doxylamine 25 MG TAB PO SCH (09:45)
== END 2018-08-16 11:16 | disposition home or self-care (01) ==
LOC: INTOOBSV 17:18 → 3SE 17:18
PROVIDERS: ADMIT Family Medicine; ATTEND Family Medicine
DX: O21.0 Mild hyperemesis gravidarum (principal); O98.811 Other maternal infectious and parasitic diseases complicating pregnancy, first trimester; A04.8 Other specified bacterial intestinal infections; O26.899 Other specified pregnancy related conditions, unspecified trimester; E86.0 Dehydration; Z3A.13 13 weeks gestation of pregnancy
CPT/HCPCS: 36415; 80053; 81001; 87338; 96361; 96374; 96375; 96376; C9113; G0378; J2405; J2765

== ENCOUNTER 2019-01-04 14:10 | Day surgery (SDC) | payer OTHER ==
--- NOTE | 2019-01-04 14:32 | PDOC.FPROB ---
FMR OB H&P: HPI - History of Present Illness Chief Complaint: iron infusion Indentification: 27 yo at 33.5 wks History of Present Illness: HPI: This is a 27 yo at 33.5 wks by LMP/1TUS presenting for iron transfusion She affirms movement, irregular cxns, denies ROM, denies bleeding/ discharge. Denies BALDERAS, visual changes, SOB, or swelling. History: OB hx: 3 at term, 1 miscarriage PMH: sickle trait, depression PSH: neg Meds: PNV Soc Hx: denies smoking, alcohol, drugs A+ Abs screen neg Hep b neg RPR/HIV neg Rubella immune PAP NILM GC/CT neg Quad neg 1 hr GCT 92 REVIEW OF SYSTEMS: Gen: no fever, chills, or sweats Neuro: no numbness/tingling, no weakness, denies headache Eyes: no visual changes ENT: no hearing changes, no sore throat, no runny nose Resp: no cough, no SOB, no wheeze Card: denies chest pain, no palpitations GI: no N/V/D, no abdominal pain : no dysuria, no hematuria MSK: no myalgias, no joint pain/stiffness Heme: no easy bruising/bleeding Skin: no rash, no erythema PHYSICAL EXAMINATION: General: NAD, alert and oriented x3 HEENT: PERRLA, EOMI, normal sclera, oropharynx without erythema or exudate Neck: Supple. Full ROM. Heart/Cardiovascular System: RRR, Cap refill < 3 seconds, no rub, no murmur Lungs/Respiratory System: clear to auscultation bilaterally. No increased work of breathing. Room air. Abdomen/Gastro-Intestinal System: no abdominal tenderness, normal bowel sounds, Gravid Extremeties: Warm extremities. No cyanosis or edema. Neuro: No gross deficits appreciated. CN 2-12 grossly intact Psychiatry: Awake, Alert and cooperative with exam Skin/ Integumentory: No lesions, rashes, or ulcers Musculoskeletal: Full ROM A/P: This is a 27 yo at 33.5 wks by LMP/1TUS presenting for iron transfusion # Anemia of , sickle trait -hgb 10.4 on 11/04/18, last hgb 9.5, does not tolerate PO - iron infusion today # Hyperemesis gravidarum s/p admission 08/13/18 - Weight gain appropriate - has zofran at home Primary Care Physician: donna FMR OB H&P: Medications - Current Home Medications: Medication Instructions Recorded Confirmed Type Doxylamine [Unisom] 25 mg PO BID #60 tab 08/16/18 01/04/19 Rx pyridOXINE [Vitamin B 6] 25 mg PO HS #30 tab 08/16/18 01/04/19 Rx Allergies/Adverse Reactions: Allergies Allergy/AdvReac Type Severity Reaction Status Date / Time No Known Drug Allergies Allergy Verified 08/30/15 08:29 FMR OB H&P: A/P - Problem List (1) Status: Acute (2) Anemia Status: Acute Code(s): D64.9 - ANEMIA, UNSPECIFIED Comment: Will recheck H& H this morning. Discussion: Date/Time: 01/04/19 1431 This H&P was discussed with [] and [] who agree with the above documentation and plan. Addendum - Attending - Attending Attestation Date/Time: 01/04/192037 I personally evaluated the patient and discussed the management with Dr. Wei I agree with the History, Examination, Assessment and Plan documented above with any addition or exceptions noted below. 27 yo at 33.5 wks with iron deficiency anemia unable to tolerate PO iron. Mild anemia related to physiology of . Unable to proceed with iron infusion today. Correct iron preparation not available until Sunday. Will re-schedule. Lexie
[2019-01-04] MEDS ORDERED: Acetaminophen 500 MG TAB PO PRN (14:47)
[2019-01-04] MEDS ORDERED: Iron Sucrose Complex 500 MG in Sodium Chloride 0.9% 250 ML 250 ML IVPB SCH (15:30)
[2019-01-04 15:55] VITALS: BMI 30.3
[2019-01-04] MEDS ORDERED: SODIUM CHLORIDE 0.9% IVPB SCH (16:00)
[2019-01-04] MEDS ORDERED: IRON DEXTRAN IVPB SCH (16:00)
--- NOTE | 2019-01-04 16:01 | PDOC.EVN ---
Event Note - Event Note Event Note: hospital all out of venofer pharmacy offered infed, looked up infed on [facility] has blackbox warning for anaphylaxis, rec'd having crash cart at bedside reported hgb from pcp was 9.5, risks outweigh benefits Will have patient return on sunday when venofer is in stock
== END 2019-01-04 16:15 | disposition home health service (06) ==
LOC: L&D/OP 14:10
PROVIDERS: ATTEND Obstetrics & Gynecology
DX: O99.013 Anemia complicating pregnancy, third trimester (principal); D57.1 Sickle-cell disease without crisis; O21.0 Mild hyperemesis gravidarum; Z3A.33 33 weeks gestation of pregnancy; Z79.899 Other long term (current) drug therapy
CPT/HCPCS: 96360; 96361; 99283; J1750; J1756; J7050

== ENCOUNTER 2019-01-07 14:06 | Day surgery (SDC) | payer OTHER ==
--- NOTE | 2019-01-04 12:49 | PDOC.FPROB ---
FMR OB H&P: HPI - History of Present Illness History of Present Illness: HPI: This is a 27 yo at 33.5 wks by LMP/1TUS presenting for iron transfusion She affirms movement, denies cxns, ROM, bleeding/discharge. Denies BALDERAS, visual changes, SOB, or swelling. History: OB hx: 3 at term, 1 miscarriage PMH: sickle trait, depression PSH: neg Meds: PNV Soc Hx: denies smoking, alcohol, drugs A+ Abs screen neg Hep b neg RPR/HIV neg Rubella immune PAP NILM GC/CT neg Quad neg 1 hr GCT 92 REVIEW OF SYSTEMS: Gen: no fever, chills, or sweats Neuro: no numbness/tingling, no weakness, denies headache Eyes: no visual changes ENT: no hearing changes, no sore throat, no runny nose Resp: no cough, no SOB, no wheeze Card: denies chest pain, no palpitations GI: no N/V/D, no abdominal pain : no dysuria, no hematuria MSK: no myalgias, no joint pain/stiffness Heme: no easy bruising/bleeding Skin: no rash, no erythema PHYSICAL EXAMINATION: General: NAD, alert and oriented x3 HEENT: PERRLA, EOMI, normal sclera, oropharynx without erythema or exudate Neck: Supple. Full ROM. Heart/Cardiovascular System: RRR, Cap refill < 3 seconds, no rub, no murmur Lungs/Respiratory System: clear to auscultation bilaterally. No increased work of breathing. Room air. Abdomen/Gastro-Intestinal System: no abdominal tenderness, normal bowel sounds, Gravid Extremeties: Warm extremities. No cyanosis or edema. Neuro: No gross deficits appreciated. CN 2-12 grossly intact Psychiatry: Awake, Alert and cooperative with exam Skin/ Integumentory: No lesions, rashes, or ulcers Musculoskeletal: Full ROM A/P: This is a 27 yo at 33.5 wks by LMP/1TUS presenting for iron transfusion # Anemia of , sickle trait -hgb 10.4 on 11/04/18 - iron infusion today # Hyperemesis gravidarum s/p admission 08/13/18 - Weight gain appropriate Primary Care Physician: donna FMR OB H&P: Medications - Current Home Medications: Medication Instructions Recorded Confirmed Type Amoxicillin [Amoxil] 1,000 mg PO BID #22 cap 08/16/18 Rx Clarithromycin [Biaxin] 500 mg PO BID #22 tab 08/16/18 Rx Doxylamine [Unisom] 25 mg PO BID #60 tab 08/16/18 Rx Ondansetron [Zofran Oral Solution] 8 mg PO Q6H PRN #64 mg 08/16/18 Rx Pantoprazole [Protonix] 40 mg PO BID #22 tab 08/16/18 Rx pyridOXINE [Vitamin B 6] 12.5 mg PO BID #60 tab 08/16/18 Rx pyridOXINE [Vitamin B 6] 25 mg PO HS #30 tab 08/16/18 Rx Allergies/Adverse Reactions: Allergies Allergy/AdvReac Type Severity Reaction Status Date / Time No Known Drug Allergies Allergy Verified 08/30/15 08:29 FMR OB H&P: A/P Discussion: Date/Time: 01/04/19 2437 This H&P was discussed with [] and [] who agree with the above documentation and plan.
[2019-01-07] MEDS ORDERED: Acetaminophen 500 MG TAB PO PRN (14:35)
[2019-01-07] MEDS ORDERED: Iron Sucrose Complex 500 MG in Sodium Chloride 0.9% 250 ML 250 ML IVPB SCH ×2 (15:00→20:04)
[2019-01-07 15:15] VITALS: BP 112/69; TEMP 98.6; BMI 30.3
--- NOTE | 2019-01-07 15:17 | PDOC.FPROB ---
FMR OB H&P: HPI - History of Present Illness Chief Complaint: Iron Transfusion Indentification: 27yo @34.1wks by LMP c/w 1T US ([facility] 02/17/2019) History of Present Illness: 27 yo @34.1 wks by LMP c/w 1T US ([facility] 02/17/2019) presenting for iron transfusion for anemia of unable to tolerate PO replacement. She was brought in 01/04 for iron transfusion but preparation was not available. Endorses FM. Denies contractions, LOF, vaginal bleeding. Denies BALDERAS, visual changes, SOB, or swelling. Primary Care Physician: Dr Lebron FMR OB H&P: Current - Care : 5 Para: [id number] Gestational age: 34.1wks Course/Complications: Hyperemesis gravidarum s/p admission 08/13/18 - OB Labs Blood type: A RH: positive Antibody Screen: negative HIV: negative RPR: negative HepBsAg: negative Rubella: immune Quad screen: negative Gonorrhea: negative Chlamydia: negative Pap Smear: NILM 1 hour gtt: 92 FMR OB H&P: History - Past Medical History PMH: Sickle cell trait - Social History Social History: Denies alcohol, tobacco and drug use FMR OB H&P: Medications - Current Home Medications: Medication Instructions Recorded Confirmed Type pyridOXINE [Vitamin B 6] 25 mg PO HS #30 tab 08/16/18 01/07/19 Rx Allergies/Adverse Reactions: Allergies Allergy/AdvReac Type Severity Reaction Status Date / Time No Known Drug Allergies Allergy Verified 01/07/19 15:04 FMR OB H&P: ROS - Review of Systems Eyes: denies: vision changes, double vision, scotomas, floaters ENT: denies: nasal congestion, rhinorrhea Cardiovascular: denies: chest pain, palpitation Respiratory: denies: cough, congestion, shortness of breath Gastrointestinal: denies: abdominal pain Genitourinary (Female): denies: vaginal bleeding, contractions Musculoskeletal: denies: pain, swelling Neurologic: denies: numbness, weakness Integumentary: denies: itching, rash FMR OB H&P: Vital Signs - Maternal Vital signs: Vital Signs - First Documented Temp Pulse Resp BP Pulse Ox 98.6 F 104 H 16 112/69 98 01/07/19 15:04 01/07/19 15:04 01/07/19 15:04 01/07/19 15:04 01/07/19 15:04 FMR OB H&P: Physical Exam - Physical Exam General: NAD, awake, alert and oriented HEENT: normocephalic and atraumatic, MMM, conjunctiva clear, grossly normal hearing, oropharynx clear Neck: supple, trachea midline Heart: RRR, no murmurs/rubs/gallops General: CTAB, no respiratory distress Abdomen: soft, gravid, non-tender, bowel sound present Musculoskeletal: normal gait and station, pulses present, no misalignment/ asymmetry, no atrophy Neurological: no focal deficit Skin: no rash, good tugor Lymphatic: no petechia Psychiatric: intact recent and remote memory, good judgement and insight, normal mood and affect FMR OB H&P: A/P - Problem List (1) Anemia Status: Acute Code(s): D64.9 - ANEMIA, UNSPECIFIED Comment: Will recheck H& H this morning. (2) Hyperemesis affecting , antepartum Status: Acute Code(s): O21.0 - MILD HYPEREMESIS GRAVIDARUM (3) Second trimester Status: Acute Code(s): Z34.92 - ENCNTR FOR SUPRVSN OF NORMAL PREG, UNSP, SECOND TRIMESTER Disposition: 27yo @34.1wks by LMP c/w 1T US ([facility] 02/17/2019) Anemia of , Sickle cell trait - Hgb Hgb 10.4 on 11/04/18, prior was 9.5 - Does not tolerate PO iron replacement - Scheduled for iron infusion on 01/04 but iron preparation not available until today - Iron infusion today Hyperemesis Gravidarum s/p admission 08/13/18 - Zofran PRN at home Discussion: Date/Time: 01/07/19 9615 This H&P was discussed with [] and [] who agree with the above documentation and plan. Addendum - Attending - Attending Attestation Date/Time: 01/08/19 0119 I personally evaluated the patient and discussed the management with Dr. Arriaga I agree with the History, Examination, Assessment and Plan documented above with any addition or exceptions noted below.
[2019-01-07] MEDS ORDERED: Sodium Chloride 0.9% 1,000 ML IV SCH (15:45)
[2019-01-07] MEDS ORDERED: Acetaminophen 500 MG TAB PO SCH (20:04)
== END 2019-01-07 19:50 | disposition home or self-care (01) ==
LOC: L&D/OP 14:06
PROVIDERS: ATTEND Family Medicine
DX: O99.013 Anemia complicating pregnancy, third trimester (principal); D57.3 Sickle-cell trait; O21.0 Mild hyperemesis gravidarum; Z3A.34 34 weeks gestation of pregnancy; Z79.899 Other long term (current) drug therapy
CPT/HCPCS: 96361; 96365; 96366; 99283; J1756; J7050

== ENCOUNTER 2019-01-09 11:59 | Inpatient (IN) | payer OTHER, SELFPAY ==
[2019-01-09 12:32] VITALS: BP 111/74; TEMP 98.7; BMI 27.1
[2019-01-09 13:08] LABS: Amnisure Test No Membranes Rupture (No Rupture)
[2019-01-09 13:09] LABS: Amnisure Internal Control QC ACCEPTABLE (ACCEPTABLE)
--- NOTE | 2019-01-09 13:33 | PDOC.FPROB ---
FMR OB H&P: HPI - History of Present Illness Chief Complaint: Concern for sROM Indentification: 27yo @34.3wks by LMP c/w 1T US ([facility] 02/17/2019) History of Present Illness: 27yo @34.3wks by LMP c/w 1T US ([facility] 02/17/2019) presenting for concern of sROM. Yesterday morning around 2am she woke up to use the restroom and felt that she had leakage after that was not urine. Not currently having leakage. Yesterday began having contractions. The resolved and began again today. Currently denies contractions. No intercourse in last 48hrs. Endorses FM. Denies VB or change in discharge. Primary Care Physician: Dr Lebron FMR OB H&P: Current - Care : 5 Para: 3013 Gestational age: 34.3 Due date: 02/17/19 Dating Criteria: LMP c/w 10.3wks Total weight gain: 13lb Course/Complications: Hyperemesis gravidarum. Marginal previa - OB Labs Blood type: A RH: positive Antibody Screen: negative HIV: negative RPR: negative HepBsAg: negative Rubella: immune Quad screen: negative Urine drug screen: not done Gonorrhea: negative Chlamydia: negative Pap Smear: NILM 1 hour gtt: 92 GBS: unknown - First Trimester Ultrasound First trimester: 10.3wks - Anatomy Survey Anatomy survey: 10/08/18: US with marginal previa 1.07cm from os- recommended 3T US FMR OB H&P: History - Past Medical History PMH: Sickle cell trait - Social History Social History: Denies alcohol, tobacco and drug use FMR OB H&P: Medications - Current Home Medications: Medication Instructions Recorded Confirmed Type pyridOXINE [Vitamin B 6] 25 mg PO HS #30 tab 08/16/18 01/09/19 Rx Doxylamine [Unisom] 25 mg PO HS 01/09/19 01/09/19 History Ondansetron HCl [Zofran] 4 mg PO Q4HR PRN 01/10/19 01/10/19 History Allergies/Adverse Reactions: Allergies Allergy/AdvReac Type Severity Reaction Status Date / Time No Known Drug Allergies Allergy Verified 01/07/19 15:04 FMR OB H&P: ROS - Review of Systems General: denies: fever/chills, weight/appetite/sleep changes Eyes: denies: vision changes, double vision, scotomas, floaters ENT: denies: nasal congestion, rhinorrhea Cardiovascular: denies: chest pain, palpitation Respiratory: denies: congestion, shortness of breath Gastrointestinal: reports: abdominal pain. denies: nausea, vomiting Genitourinary (Female): reports: contractions, other (LOF). denies: vaginal bleeding Musculoskeletal: denies: swelling Neurologic: denies: weakness, headache Integumentary: denies: rash, lesions FMR OB H&P: Vital Signs - Maternal Vital signs: Vital Signs - First Documented Temp Pulse Resp BP 98.7 F 99 16 111/74 01/09/19 12:27 01/09/19 12:27 01/09/19 12:27 01/09/19 12:27 - Heart Tones Baseline: 140 Variability: moderate Acceleration: present Deceleration: absent Category: category 1 [place] contractions every: Irregular FMR OB H&P: Physical Exam - Physical Exam General: NAD, awake, alert and oriented HEENT: normocephalic and atraumatic, MMM Neck: supple, trachea midline Abdomen: soft, gravid, non-tender, bowel sound present Musculoskeletal: normal gait and station, pulses present, no misalignment/ asymmetry, no atrophy Neurological: no focal deficit Skin: no rash Psychiatric: intact recent and remote memory, good judgement and insight, normal mood and affect FMR OB H&P: Results - Labs Lab results: Laboratory Results - last 24 hr 01/09/19 12:35 Amnio Swab Test No Membranes Rupture FMR OB H&P: A/P - Problem List (1) Hyperemesis affecting , antepartum Status: Acute Code(s): O21.0 - MILD HYPEREMESIS GRAVIDARUM (2) Status: Acute Qualifiers: Weeks of gestation: 34 weeks Qualified Code(s): Z3A.34 - 34 weeks gestation of Disposition: 27yo @34.3wks by LMP c/w 1T US ([facility] 02/17/2019) sIUP concern for sROM - Amnisure neg - NST reactive, Cat 1 FHTs - Contractions irregular - Ordered US for GAUTAM Marginal placenta previa - On US 10/08/18 - 1.07cm from os, recommended 3T US - Has not followed up with [facility] Anemia of , Sickle cell trait - Hgb 10.4 on 11/04/18, prior was 9.5 - Does not tolerate PO iron replacement - S/p iron infusion on 01/07 Hyperemesis Gravidarum s/p admission 08/13/18 - Zofran PRN at home - Denies nausea Discussion: Date/Time: 01/09/19 1333 This H&P was discussed with Dr. Smalls who agrees with the above documentation and plan. Addendum - Attending - Attending Attestation Date/Time: 01/09/19 1500 I personally evaluated the patient and discussed the management with Dr. [] I agree with the History, Examination, Assessment and Plan documented above with any addition or exceptions noted below. 28 yo female at 34.3 wks by LMP/10.3 wk sono here for possible ROM. Patient reports ROM a few days ago with continued leakage of fluid. Reports contractions q 10 minutes. Denies VB, discharge, dysuria, hematuria. +FM. SVE: Visually 1 cm. No pooling. No blood. White thin discharge. Swabs taken. FHT: 140/mod/pos acel/no decel. Occasional contractions. Fundus nontender. 1. Rule out PPROM: Amnisure negative x2. Fern negative. Sperm present on slide. VP3, GBS, and Ct/GC pending. 2. Oligohydramnios: Bedside GAUTAM 1 cm. Will add biometry, umbilical artery dopplers, BPP. Give steroids. Start IVF hydration. Does not appear rupture based on exam and labs. However, noted to be oligo. Will place in obs overnight. Start IVFs and steroids. Repeat ultrasound evaluation in AM. Concern mom is having poor PO intake. Consider repeat AMNIsure if patient notes leakage overnight. Lexie
--- NOTE | 2019-01-09 14:50 | ULT ---
Limited obstetrical ultrasound: 01/09/2019 COMPARISON: None HISTORY: 28-year-old female, assess amniotic fluid index TECHNIQUE: Multiplanar grayscale sonographic imaging of the gravid uterus obtained. FINDINGS: Single intrauterine gestation present with heart rate of 145 bpm. Vertex presentation noted. Placenta located to the maternal left with no evidence for previa or abruption. Oligohydramnios noted, amniotic fluid index estimated at 1.3 cm. IMPRESSION: Oligohydramnios. Results called to Dr. Smalls at 2:45 PM 01/09/2019
[2019-01-09] MEDS ORDERED: Promethazine HCl 25 MG/ML VIAL IM PRN (15:13)
[2019-01-09] MEDS ORDERED: Ondansetron PF 4 MG/2 ML Vial IVP PRN (15:13)
[2019-01-09] MEDS ORDERED: Lactated Ringer's 1,000 ML IV SCH (15:15)
--- NOTE | 2019-01-09 15:52 | ULT ---
Limited obstetrical ultrasound Biophysical profile Umbilical arterial Doppler ultrasound: 01/09/2019 HISTORY: 28-year-old female with oligohydramnios TECHNIQUE: Multiplanar grayscale sonographic imaging of the gravid uterus obtained. The umbilical art nestor is assessed with color flow and spectral analysis. A routine biophysical profile was performed as well FINDINGS: There is a single intrauterine gestation demonstrating a cephalic presentation. Cervical le ngth is approximately 4.2 cm. heart rate is 140 bpm. The antenna specialist reports that the placenta is to the maternal left. Amniotic fluid index is estimated at approximately 2.3 cm. biometry: BPD 8.4 cm 33 weeks 5 days HC 31.1 cm 34 weeks 6 days AC 28.4 cm 32 weeks 3 days FL 6.8 cm 34 weeks 5 days Average age based on ultrasound is 34 weeks 1 days with estimated date of delivery on 02/19/2019. Enedelia mated weight is 2198 g +/- 325 g. The antenna specialist reports a 2 out of 2 score for tone, breathing, and movements. 0 ou t of 2 score for amniotic fluid index. Thus, biophysical profile score is 6 out of 8. Umbilical arterial Doppler demonstrates a peak systolic velocity ranging from 32 cm/s to 48 cm/s with a systolic/diastolic ratio ranging from 2.3-3.4. The interrogated free floating portion on the umbilical cord demonstrates peak systolic velocity of 48 cm/s and systolic/diastolic ratio of 2.8. Impression: Single live intrauterine gestation as above. Oligohydramnios is noted. Biophysical profile score is 6 out of 8. Umbilical arterial Doppler demonstrates a systolic/diastolic ratio measuring up to 3.4. The free-floa ting portion of the umbilical cord demonstrates systolic/diastolic ratio of 2.8. (50th percentile for this gestational age is 2.5 and 95th percentile for this gestational age is 3.6).
[2019-01-09 16:19] LABS: Bilirubin Negative (Negative); Blood, Urine Small (Negative); Clarity CLEAR (Clear); Glucose, Urine (Dipstick) Negative (Negative); Leukocyte Negative (Negative); Nitrite Negative (Negative); Protein, Urine (Dipstick) Negative (Neg-Trace); Specific Gravity, Urine 1.011 (1.002-1.036); Urobilinogen 0.2 mg/dL (0.2-1.0)
[2019-01-09 16:23] LABS: Bacteria/HPF None Seen HPF (None Seen); Hyaline Casts/LPF 0-3 HYALINE CAST LPF (0-3 Hyaline); Squamous Epithelial 0-3 HPF (0-3); WBC/HPF None Seen HPF (0-3)
[2019-01-09] MEDS: Betamet Acet/Betamet Na Ph 30 MG/5 ML VIAL IM SCH (16:30)
[2019-01-09 17:02] LABS: Amnisure Test No Membranes Rupture (No Rupture)
[2019-01-09 17:03] LABS: Amnisure Internal Control QC ACCEPTABLE (ACCEPTABLE)
[2019-01-09 17:36] LABS: Syphilis Antibody Nonreactive (Nonreactive); Syphilis Antibody Index 0.02 S/CO (<1.00 Non-Reactive)
[2019-01-09 17:37] LABS: HBSAg Index 0.27 S/CO (0-0.99); Hep B Surf Ag Non-Reactive S/CO (NonReactive)
[2019-01-09] MEDS: Lactated Ringer's 1,000 ML IV SCH (19:02)
[2019-01-09] MEDS ORDERED: Acetaminophen 325 MG TAB PO SCH (20:00)
--- NOTE | 2019-01-09 21:31 | PDOC.EVN ---
Event Note - Event Note Event Note: Nursing reported that patient reported leaking fluid. I came to the room and discussed with the patient. She noted some blood in her urine, but vaginal leaking. the blood in urine was likely due to urethral catheterization attempt earlier today.
[2019-01-10] MEDS: Lactated Ringer's 1,000 ML IV SCH (02:52)
--- NOTE | 2019-01-10 06:49 | PDOC.FM ---
- Subjective Subjective: Feeling well. Denies nausea, vomiting, abdominal pain. Has had small amount of bleeding but did have 3 cath attempts yesterday with resulting blood in clean catch urine. Endorses FM, irregular contractions. No vaginal pain, LOF or discharge. - Objective MAR Reviewed: Yes Vital Signs & Weight: Weight Weight 73.936 kg Phys Exam - Physical Examination Constitutional: NAD HEENT: moist MMs Neck: supple Respiratory: no wheezing, clear to auscultation bilateral Cardiovascular: RRR, no significant murmur Gastrointestinal: soft, non-tender, positive bowel sounds Musculoskeletal: pulses present Neurological: moves all 4 limbs Psychiatric: normal affect, A&O x 3 Skin: normal turgor Dx/Plan (1) Oligohydramnios Code(s): O41.00X0 - OLIGOHYDRAMNIOS, UNSP TRIMESTER, NOT APPLICABLE OR UNSP Status: Acute (2) Hyperemesis affecting , antepartum Code(s): O21.0 - MILD HYPEREMESIS GRAVIDARUM Status: Acute (3) Marginal placenta previa Code(s): O44.20 - PARTIAL PLACENTA PREVIA NOS OR WITHOUT HEMOR, UNSP TRIMESTER Status: Resolved (4) Status: Acute Qualifiers: Weeks of gestation: 34 weeks Qualified Code(s): Z3A.34 - 34 weeks gestation of - Plan Plan: 27yo @34.4wks by LMP c/w 1T US ([facility] 02/17/2019) sIUP with Oligohydramnios, initial concern for PPROM - Amnisure neg x2 - No ferning on microscopic exam of vaginal fluid and swab of cervical os - GAUTAM: 1.3, repeat GAUTAM 2.3. 8 at last US - BPP 03/08, 0 of 2 for GAUTAM - NST reactive, Cat 1 FHTs - UA clean cath only remarkable for blood, likely traumatic due to cath attempts - Contractions irregular - Pt received IVF bolus and LR@125 overnight, repeating GAUTAM this AM. Concern for dehydration, as pt has had poor PO intake and vomiting yesterday morning. Anemia of , Sickle cell trait - Hgb 10.4 on 11/04/18, prior was 9.5 - Does not tolerate PO iron replacement - S/p iron infusion on 01/07 Hyperemesis Gravidarum s/p admission 08/13/18 - Zofran PRN at home - Continue inpt Marginal placenta previa, resolved Addendum - Attending - Attending Attestation Date/Time: 01/10/19 1039 I personally evaluated the patient and discussed the management with Dr. Arriaga I agree with the History, Examination, Assessment and Plan documented above with any addition or exceptions noted below. 28 yo G P at 34w4d dated by LMP and 1t US Pt reports no further episodes of leaking fluid. She denies bleeding. Reports there was a small amount of blood with wiping after urination last night but that has not happened again. Baby moving normally. Repeat GAUTAM today is 6 with MVP>3cm. No oligohydramnios. No clear evidence of PPROM at this time and amniotic fluid is back in a normal range. Of note, pt reports she was not eating/drinking yesterday and had a lot of vomiting prior to admission yesterday. Will allow d/c to home later today after second dose of steroids. Pt to have repeat GAUTAM/BPP early next week at [facility]. Will need weekly testing until delivery. If oligohydramnios returns, delivery is indicated 36- 37w.
--- NOTE | 2019-01-10 08:13 | ULT ---
ULTRASOUND OBSTETRICAL LIMITED: DATE: 01/10/2019. TIME: 7:33 a.m. HISTORY: A 28-year-old female with oligohydramnios. Followup. FINDINGS: number: [place]. lie: Cephalic. Maternal cervix: Not visualized because maternal bladder not full. Placenta: Lateral, to maternal left. No placenta previa. Amniotic fluid volume: GAUTAM 6 cm. heart rate: 128 b.p.m. IMPRESSION: 1. Live 3rd trimester intrauterine gestation. 2. Cephalic lie. 3. Oligohydramnios with amniotic fluid index of 6 cm. [place] POS: [facility]
[2019-01-10] MEDS: Betamet Acet/Betamet Na Ph 30 MG/5 ML VIAL IM SCH (16:15)
== END 2019-01-10 16:21 | disposition home health service (06) | DRG 832 ==
LOC: L&D/OP 11:59 → OBSVTOIN 15:13 → L&D 15:13 → UNDOADMOB 19:29
PROVIDERS: ADMIT Student in an Organized Health Care Education/Training Program; ATTEND Student in an Organized Health Care Education/Training Program
DX: O41.03X0 Oligohydramnios, third trimester, not applicable or unspecified (principal); O44.23 Partial placenta previa NOS or without hemorrhage, third trimester; O21.0 Mild hyperemesis gravidarum; O99.013 Anemia complicating pregnancy, third trimester; D64.9 Anemia, unspecified; D57.3 Sickle-cell trait; Z3A.34 34 weeks gestation of pregnancy
CPT/HCPCS: 36415; 76700; 76805; 76815; 76819; 81001; 84112; 86780; 86850; 86900; 86901; 87081; 87340; 87480; 87491; 87510; 87591; 87660; A4353; J0702

== ENCOUNTER 2019-02-13 21:00 | Inpatient (IN) | payer OTHER, SELFPAY ==
[2019-02-13 22:25] VITALS: BMI 31.8
[2019-02-13] MEDS: Lactated Ringer's 1,000 ML IV SCH (23:09)
[2019-02-13] MEDS ORDERED: Misoprostol 100 MCG TAB ONE (23:39)
[2019-02-13] MEDS ORDERED: Misoprostol 100 MCG TAB VAG SCH (23:45)
[2019-02-13] MEDS ORDERED: Lidocaine 1% (PF) 30 ML VIAL SC PRN (23:51)
[2019-02-13] MEDS ORDERED: NS / Oxytocin 40 units/1000ml 1,000 ML IV PRN (23:51)
[2019-02-13] MEDS ORDERED: Promethazine HCl 25 MG/ML VIAL IM PRN (23:51)
[2019-02-13] MEDS ORDERED: Ondansetron PF 4 MG/2 ML Vial IVP PRN (23:51)
--- NOTE | 2019-02-13 23:56 | PDOC.FPROB ---
FMR OB H&P: HPI - History of Present Illness Chief Complaint: elective IOL History of Present Illness: This is a 38yo @ 39.3wks by LMP c/w 10.3wk sono here for elective IOL. Patient has no complaints or concerns upon arrival. She denies any vaginal bleeding, discharge, dysuria, chest pain, SOB, vision changes, LE edema. She endorses + FM, she also endorses some LOF fluid described as mucusy, yellow. She was checked in clinic on 02/12 and found to be 3/50/-3. has been uncomplicated to date. Primary Care Physician: Rex FMR OB H&P: Current - Care : 5 Para: 3013 Gestational age: 39.3 Due date: 02/17/2019 Dating Criteria: 10.3wk sono - OB Labs Blood type: A RH: positive Antibody Screen: negative HIV: negative RPR: negative HepBsAg: negative Rubella: immune Gonorrhea: negative Chlamydia: negative Pap Smear: normal on 07/08/18 1 hour gtt: 92 H&H: 9.5/27.8 Platelets: 263 - First Trimester Ultrasound First trimester: nml - Anatomy Survey Anatomy survey: no abnormalities noted posterior placenta FMR OB H&P: History - Past Medical History PMH: depression - OB History OB History: X3, 37, 38, and 39wks Spont AB @ 8wks - GIS INSTRUCTOR History GIS INSTRUCTOR History: normal pap 07/2018 - Surgical History Sx History: none - Social History Social History: denies al/to/dr - Family History Family History: no congenital abnormalities FMR OB H&P: Medications - Current Home Medications: Medication Instructions Recorded Confirmed Type Docusate [Colace] 100 mg PO BID #14 cap 02/15/19 Rx Ferrous Sulfate [Feosol] 325 mg PO BID-WM #60 tab 02/15/19 Rx Ibuprofen [Motrin] 800 mg PO Q8HR #24 tab 02/15/19 Rx Vitamin 1 tab PO DAILY tab 02/15/19 Rx Allergies/Adverse Reactions: Allergies Allergy/AdvReac Type Severity Reaction Status Date / Time No Known Drug Allergies Allergy Verified 02/13/19 22:27 FMR OB H&P: ROS - Review of Systems General: denies: fever/chills, weight/appetite/sleep changes, night sweats, fatigue Eyes: denies: vision changes, double vision, scotomas, floaters ENT: denies: nasal congestion, rhinorrhea Cardiovascular: denies: chest pain, palpitation, edema Respiratory: denies: cough, congestion, shortness of breath Gastrointestinal: denies: abdominal pain, nausea, vomiting, diarrhea, constipation Genitourinary (Female): reports: vaginal pressure. denies: dysuria, vaginal discharge, vaginal bleeding, contractions Musculoskeletal: denies: swelling Neurologic: denies: weakness Psychological: reports: depression. denies: anxiety FMR OB H&P: Vital Signs - Maternal Vital signs: Vital Signs - First Documented Temp Pulse Resp BP 97.5 F L 91 18 113/75 02/13/19 22:17 02/13/19 22:17 02/13/19 22:02/13/19 22:17 - Heart Tones Baseline: 140 Variability: moderate Acceleration: present Deceleration: absent Category: category 1 [place] contractions every: none FMR OB H&P: Physical Exam - Physical Exam General: NAD, awake, alert and oriented HEENT: normocephalic and atraumatic, PERRLA, EOMI, MMM, grossly normal vision, grossly normal hearing, good dention Neck: supple, FROM, trachea midline Chest: non-tender to palpation Heart: RRR, normal S1/S2, no murmurs/rubs/gallops, pulses present, no edema General: CTAB, no respiratory distress, good air movement, no wheezing Abdomen: soft, gravid Musculoskeletal: normal gait and station, FROM in all four extremities Skin: no rash, good tugor, capillary refill <2 seconds - Pelvic Exam Vulva: normal hair distribution Cervix: no masses Andrew score: 5 Presentation: cephalic FMR OB H&P: A/P - Problem List (1) Sickle cell trait Status: Acute Code(s): D57.3 - SICKLE-CELL TRAIT (2) Anemia Status: Acute Code(s): D64.9 - ANEMIA, UNSPECIFIED Comment: Will recheck H& H this morning. (3) Status: Acute Qualifiers: Weeks of gestation: 34 weeks Qualified Code(s): Z3A.34 - 34 weeks gestation of Disposition: IOL, elective, term - Cervical Check - @ 2345: /-3, cytotech x1, will recheck in 4 hrs - VSS - FHT: FHR 140, mod variability, accels present, no decels, cat 1 - Cephalic position confirmed w/ US Anemia of - Iron infusion in December 2018, noncompliant with taking iron - Most recent Hgh 9.4 - Will monitor H/H H Pylori - non compliant w/ medications, needs eradication th PP Hx of hyperemesis gravidarum - No nausea at presentation - PRNS available Sickle Cell Trait - aware Dispo: admit to L&D for IOL Case discussed with Dr. Smalls Discussion: Date/Time: 02/13/19 1631 This H&P was discussed with [] and [] who agree with the above documentation and plan. Addendum - Attending - Attending Attestation Date/Time: 02/14/19 0030 I personally evaluated the patient and discussed the management with Dr. Lugo and Dr. Lockett I agree with the History, Examination, Assessment and Plan documented above with any addition or exceptions noted below. Miso x1 due to unfavorable cervix. Repeat exam in 3 hours. Cat 1 tracing. Monitor closely. Lexie
[2019-02-14 00:43] LABS: Hemoglobin 10.8 g/dL (12.0-16.0); Mean Corpuscular HGB CONC 34.5 g/dL (32.0-36.0); Mean Corpuscular Hemoglobin 25.4 pg (27.0-31.0); Mean Corpuscular Volume 73.8 fL (78.0-98.0); Mean Platelet Volume 10.7 fL (7.4-10.4); Platelet Count 214 thou/uL (130-400); RBC Distribution Width 19.3 % (11.5-14.5); Red Blood Cell (RBC) Count 4.23 mill/uL (4.20-5.40); White Blood Cell (WBC) Count 10.6 thou/uL (4.8-10.8)
[2019-02-14 01:20] LABS: HBSAg Index 0.38 S/CO (0-0.99); Hep B Surf Ag Non-Reactive S/CO (NonReactive)
[2019-02-14] MEDS ORDERED: Misoprostol 100 MCG TAB VAG SCH (03:00)
--- NOTE | 2019-02-14 03:00 | PDOC.LDPN ---
Labor & Delivery Progress Note - Subjective Subjective: comfortable - Objective Vital signs reviewed and normal: yes General: NAD, resting, breathing through contractions Uterine fundus: non tender Dilation: 3 Effacement: 50% Station: -3 FHT: category 1 [place] contractions every: none Resuscitative measures: maternal IV fluids - Assessment (1) Sickle cell trait Code(s): D57.3 - SICKLE-CELL TRAIT Status: Acute (2) Anemia Code(s): D64.9 - ANEMIA, UNSPECIFIED Status: Acute Comment: Will recheck H& H this morning. (3) Status: Acute Qualifiers: Weeks of gestation: 34 weeks Qualified Code(s): Z3A.34 - 34 weeks gestation of Plan: continue plan of care -: IOL, elective, term - Cervical Check -@ 2345: /3, cytotec x1 -@ 0300: 3, cytotec x2, will recheck in 3-4hrs - VSS - FHT: FHR 140, mod variability, accels present, no decels, cat 1 - Continue plan of care; once patient is Andrew score of 6 will start pitocin Case discussed with PGY3 Dr. Lockett Addendum - Attending - Attending Attestation Date/Time: 02/14/19 0532 I personally evaluated the patient and discussed the management with Dr. Lugo and Dr. Lockett I agree with the History, Examination, Assessment and Plan documented above with any addition or exceptions noted below. Still unfavorable. Will place second miso. Monitor closely. Cat 1 tracing. Lexie
[2019-02-14 05:05] LABS: Syphilis Antibody Nonreactive (Nonreactive); Syphilis Antibody Index 0.02 S/CO (<1.00 Non-Reactive)
[2019-02-14] MEDS ORDERED: NS / Oxytocin 40 units/1000ml 1,000 ML ONE (07:23)
[2019-02-14] MEDS ORDERED: Lidocaine 1% (PF) 30 ML VIAL ONE (07:23)
[2019-02-14] MEDS: Lactated Ringer's 1,000 ML IV SCH (07:30)
--- NOTE | 2019-02-14 07:35 | PDOC.LDPN ---
Labor & Delivery Progress Note -: IOL, elective, term -@ 2345: /-3, cytotec x1 -@ 0300: /-3, cytotec x2, will recheck in 3-4hrs -@ 0730: /-2, cytotec x2, having early decels with contractions, will monitor and start pit Anemia of - Iron infusion in December 2018, noncompliant with taking iron - 10.8 on admit H Pylori - non compliant w/ medications, needs eradication th PP Hx of hyperemesis gravidarum - No nausea at presentation - PRNS available Sickle Cell Trait
[2019-02-14] MEDS ORDERED: NS w/ Oxytocin 10 units 500 ML ONE (07:52)
[2019-02-14] MEDS ORDERED: NS w/ Oxytocin 10 units 500 ML IV SCH (08:00)
--- NOTE | 2019-02-14 10:08 | PDOC.OPDEL ---
OB Operative/Delivery Note - Additional Findings/Plan Compilations/Other Findings: Delivering Physician: Sanjuana Costa Beckham, Pope Attending: Procedure: Spontaneous Vaginal Delivery Anesthesia: Local for Repair EBL: 400 ml Pre-op Diagnosis: 1. Term intrauterine in labor 2. Hx of anemia in , sickle cell trait Post-op Diagnosis: 1. Term intrauterine , delivered 2. same as above Indications: A 28y/o female presents to L&D for elective induction. Delivery Note: This is 28yo F @ 39.5wks who delivered a viable F infant at 0915. Following a 911 page, resident team reported to pt room and found her to be complete. Gloves and gowns were pulled but pt started pushing infant out of vaginal canal before full sterile atire could be donned. Baby was delivered over an torn perineum in the occipitoanterior position with a sterile glove. No nuchal cord. The head was held down and mouth and nares were bulb suctioned. Cord clamped and cut and cord blood collected. Placenta delivered intact in the [place] with a 3 vessel cord noted. Fundal massage was performed and the fundus was firm. The cervix and vagina were inspected and a 2nd degree perineal laceration noted and repaired with 2.0 vicryl in the usual fashion with good approximation and hemostasis after a local anesthetic lidocaine was injected at site. went to nursery in good condition for routine care. Apgars were 9/9 at 1 & 5 minutes, respectively. Patient tolerated delivery well and went to after routine recovery/care. Post delivery plan: routine recovery Addendum - Attending - Attending Attestation Date/Time: 02/15/192038 I, Evelio Sanchez MD, personally evaluated the patient and discussed indications for the procedure described by Dr. Head. I directly supervised and participated in the Spontaneous Vaginal Delivery and I agree with the description of procedure as documented above without any addition or exceptions.
[2019-02-14] MEDS ORDERED: NS / Oxytocin 40 units/1000ml 1,000 ML IV SCH (10:11)
[2019-02-14] MEDS ORDERED: Bisacodyl 10 MG SUPP PR PRN (10:11)
[2019-02-14] MEDS ORDERED: Milk Of Magnesia 30 ML UDCUP PO PRN (10:11)
[2019-02-14] MEDS: Ibuprofen 800 MG TAB PO SCH ×2 (10:37→19:54)
[2019-02-14] MEDS: Acetaminophen 325 MG TAB PO SCH ×2 (12:43→17:37)
[2019-02-14] MEDS: Ferrous Sulfate 325 MG TAB PO SCH (14:58)
[2019-02-14] MEDS: Docusate Calcium (SURFAK) 240 MG CAP PO SCH (19:54)
[2019-02-14] MEDS ORDERED: HYDROcodone/Acetaminophen 5/325 mg Tablet PO SCH (21:30)
[2019-02-15] MEDS: Acetaminophen 325 MG TAB PO SCH ×3 (00:14→10:16)
[2019-02-15 06:04] LABS: Hemoglobin 8.8 g/dL (12.0-16.0); Mean Corpuscular HGB CONC 34.2 g/dL (32.0-36.0); Mean Corpuscular Hemoglobin 25.3 pg (27.0-31.0); Mean Corpuscular Volume 74.1 fL (78.0-98.0); Mean Platelet Volume 9.5 fL (7.4-10.4); Platelet Count 174 thou/uL (130-400); RBC Distribution Width 19.1 % (11.5-14.5); Red Blood Cell (RBC) Count 3.49 mill/uL (4.20-5.40); White Blood Cell (WBC) Count 12.8 thou/uL (4.8-10.8)
[2019-02-15] MEDS: Ibuprofen 800 MG TAB PO SCH ×2 (06:14→13:58)
--- NOTE | 2019-02-15 08:20 | PDOC.OBPPN ---
FMR OB PN: Subj - Interval History Hospital Day: 2 Day: 1 Chief Complaint: 28 yo now 4014 s/p yesterday (02/14@ 0915) Indentification: Has not passed flatus or stooled Interval History: Ambulating, voiding, tolerating normal diet, mild pain FMR OB PN: Obj - Maternal Vital signs: BP: [] HR: [] RR: [] Tmax: [] Pox: []% on [] Wt: [] Selected Entries 02/15/19 04:17 Temperature 98.3 F Pulse Rate 65 Blood Pressure 103/63 [Semi-Fowlers] Respiratory 20 Rate Oxygen Delivery Room Air Method FMR OB PN: Exam - Physical Exam General: NAD, awake, alert and oriented HEENT: normocephalic and atraumatic, PERRLA Heart: RRR, normal S1/S2, no murmurs/rubs/gallops General: CTAB, no respiratory distress, good air movement, no rales/rhonchi, no wheezing Abdomen: soft Deviation from normal: fundus firm at the umbilicus Skin: no rash, good tugor, capillary refill <2 seconds Lymphatic: no unusual bruising or bleeding, no purpura FMR OB PN: Data - Labs Lab results: Laboratory Results - last 24 hr 02/15/19 05:53 WBC 12.8 H RBC 3.49 L Hgb 8.8 L Hct 25.9 L MCV 74.1 L MCH 25.3 L MCHC 34.2 RDW 19.1 H Plt Count 174 MPV 9.5 FMR OB PN: A/P - Problem List (1) Term delivered Status: Acute Code(s): O80 - ENCOUNTER FOR FULL-TERM UNCOMPLICATED DELIVERY (2) Anemia affecting Status: Acute Code(s): O99.019 - ANEMIA COMPLICATING , UNSPECIFIED TRIMESTER (3) (normal spontaneous vaginal delivery) Status: Acute Code(s): O80 - ENCOUNTER FOR FULL-TERM UNCOMPLICATED DELIVERY Comment: Pt doing well . Ambulating, taking PO intake, and moving bowels. Pain well controlled. Hemoglobin slightly low but patient asymptomatic. Anticipate discharge today. Discussion: Date/Time: 02/15/19 0817 28 yo s/p elective induction and @39.4wks yesterday (02/14 @ 0915). PPD#1 sIUP, delivered -continue routine care -pain control with ibuprofen 800mg lashay, tyl prn pain, encourage ambulation, advance diet as tolerated, monitor I/O's and vitals -ok to dc this afternoon -continue pnv -f/u PNC 2 weeks Anemia of - -restarted po iron -most recent H/H: 8.8/25.9 DVT ppx: SCDs, encourage ambulation Dispo: ok for discharge this afternoon if pt desires Addendum - Attending - Attending Attestation Date/Time: 02/15/19 9485 I personally evaluated the patient and discussed the management with Dr. Bernardino Fleming I agree with the History, Examination, Assessment and Plan documented above with any addition or exceptions noted below. Pain controlled. Lochia normal. Afeb. Fundus Firm. Stable for d/c home.
[2019-02-15] MEDS ORDERED: Docusate 100 MG CAP PO SCH (09:00)
[2019-02-15] MEDS ORDERED: Adacel (T-DAP) 0.5 ML SYRINGE IM ONE (09:00)
[2019-02-15] MEDS ORDERED: Prenatal Vitamin 1 TAB PO SCH (09:00)
[2019-02-15 09:07] VITALS: BP 115/70; TEMP 97.9
[2019-02-15] MEDS: Ferrous Sulfate 325 MG TAB PO SCH (10:15)
[2019-02-15] MEDS: Docusate Calcium (SURFAK) 240 MG CAP PO SCH (10:15)
== END 2019-02-15 15:04 | disposition home or self-care (01) | DRG 807 ==
LOC: L&D 21:43 → 3SW 02-14 11:41
PROVIDERS: ADMIT Student in an Organized Health Care Education/Training Program; ATTEND Student in an Organized Health Care Education/Training Program
PROC: 10E0XZZ Delivery of Products of Conception, External Approach (ICD-10-PCS; principal; 2019-02-13)
PROC: 0KQM0ZZ Repair Perineum Muscle, Open Approach (ICD-10-PCS; 2019-02-13)
PROC: 3E033VJ Introduction of Other Hormone into Peripheral Vein, Percutaneous Approach (ICD-10-PCS; 2019-02-13)
DX: O99.02 Anemia complicating childbirth (principal); Z37.0 Single live birth; O69.81X0 Labor and delivery complicated by cord around neck, without compression, not applicable or unspecified; Z3A.39 39 weeks gestation of pregnancy; D57.1 Sickle-cell disease without crisis
CPT/HCPCS: 36415; 85027; 86780; 86850; 86900; 86901; 87340; J2001; J2590

== ENCOUNTER 2022-11-07 13:41 | Emergency (ER) | payer MEDICAID ==
[~2022-11-07 13:41] MED LIST: Iopamidol-370 76% 500 ML 1 ML ONE
[2022-11-07 14:34] LABS: #Eosinphils 0.1 thou/uL (0.0-0.7); #Lymphocytes 1.9 thou/uL (1.20-3.40); #Monocytes 0.7 thou/uL (0.11-0.59); #Neutrophils 15.3 thou/uL (1.40-6.50); %Basophils 0.1 % (0.0-1.0); %Eosinophils 0.5 % (0.0-10.0); %Lymphocytes 10.4 % (21.0-51.0); %Monocytes 4.1 % (0.0-10.0); Hemoglobin 12.1 g/dL (12.0-16.0); Mean Corpuscular HGB CONC 32.5 g/dL (32.0-36.0); Mean Corpuscular Hemoglobin 23.9 pg (27.0-31.0); Mean Corpuscular Volume 73.6 fl (78.0-98.0); Platelet Count 317 10x3/uL (130-400); RBC Distribution Width 18.6 % (11.5-14.5); Red Blood Cell (RBC) Count 5.05 mill/uL (4.20-5.40)
[2022-11-07 14:40] LABS: BHCG - Serum Negative (NEGATIVE); Pregs Control Background? CLEAR/WHITE (CLR/WHITE); Pregs Control Bar Appear? YES (CONTROL BAR)
[2022-11-07 14:51] LABS: Anisocytosis SLIGHT = 6-15 cells (100X) (0-5/hpf); Hypochromia SLIGHT = 6-15 cells (100X) (0-5/hpf); MDiff Complete? YES; Microcytosis SLIGHT = 6-15 cells (100X) (0-5/hpf); Platelet Morphology Comment Appears Adequate
[2022-11-07] MEDS ORDERED: Ondansetron PF 4 MG/2 ML Vial ONE (14:52)
[2022-11-07] MEDS ORDERED: Ketorolac Tromethamine 30 MG/ML VIAL ONE (14:52)
[2022-11-07 15:03] LABS: ALT (SGPT) 16 U/L (8-55); AST (SGOT) 14 U/L (5-34); Albumin 4.5 g/dL (3.5-5.0); Alkaline Phosphatase 80 U/L (40-110); Anion Gap 14 mmol/L (10-20); BUN (Urea Nitrogen) 7 mg/dL (7.0-18.7); Bilirubin, Total 0.4 mg/dL (0.2-1.2); Calc. Creatinine Clearance 0 mL/min (70-130); Calcium 9.2 mg/dL (7.8-10.44); Carbon Dioxide 20 mmol/L (22-29); Chloride 109 mmol/L (98-107); Estimated GFR 120; Glucose 130 mg/dL (70-105); Lipase 16 U/L (8-78); Potassium 3.6 mmol/L (3.5-5.1); Protein, Total 7.5 g/dL (6.0-8.3); Sodium 139 mmol/L (136-145)
[2022-11-07] MEDS ORDERED: Dicyclomine 20 MG/2 ML VIAL ONE (15:46)
[2022-11-07 16:07] LABS: Bilirubin Negative (Negative); Blood, Urine 1+ (Negative); Clarity Turbid (Clear); Glucose, Urine (Dipstick) Normal (Negative); Ketone, Urine Negative (Negative); Leukocyte 250 Leu/uL (Negative); Nitrite Negative (Negative); Pregnancy Test - Urine (BHCG) Negative (Negative); Protein, Urine (Dipstick) 20 mg/dL (Neg-Trace); RBC/HPF 0-3 HPF (0-3); Specific Gravity, Urine 1.021 (1.002-1.036); Urobilinogen Normal mg/dL (Less than 2)
[2022-11-07 16:08] LABS: Bacteria/HPF Rare-Few HPF (None Seen); Pregu Control Background? CLEAR/WHITE (CLR/WHITE); Pregu Control Bar Appear? YES (CONTROL BAR)
== END 2022-11-07 17:45 | disposition home or self-care (01) ==
LOC: ERS 13:41
DX: N39.0 Urinary tract infection, site not specified (principal); R19.7 Diarrhea, unspecified; R11.2 Nausea with vomiting, unspecified
CPT/HCPCS: 36415; 74177; 80053; 81003; 81015; 81025; 83605; 83690; 84703; 85025; 87040; 87086; 94760; 96361; 96372; 96374; 96375; J1885; J2405; Q9967